=== PATIENT | male | born 1975 | race Caucasian/White ===

== ENCOUNTER 2017-01-29 11:51 | Observation (INO) | payer OTHER, MEDICAID ==
[2017-01-29] MEDS ORDERED: ASPIRIN 81 MG TABLET, CHEWABLE PO ONE (11:55)
[2017-01-29] MEDS ORDERED: ONDANSETRON 4 MG TAB.RAPDIS PO ONE (12:02)
--- NOTE | 2017-01-29 12:02 | ER Document Report ---
ED Medical Screen (RME) - General Stated Complaint: CHEST PAIN Mode of Arrival: Wheelchair Information source: Patient Notes: Patient presents to the emergency department with complaints of severe back and chest pain. Genie' reported that patient had some facial drooping yesterday. Pt reports PIPER yesterday. No PIPER today. No obvious drooping today clear voice. Pt c/o back and cp.Reports hx of CAD I have greeted and performed a rapid initial assessment of this patient. A comprehensive ED assessment and evaluation of the patient, analysis of test results and completion of the medical decision making process will be conducted by additional ED providers. TRAVEL OUTSIDE OF THE [place] IN LAST 30 DAYS: No - Related Data Allergies/Adverse Reactions: No Known Allergies Allergy (Verified 01/29/17 11:59) Past Medical History - Past Medical History Cardiac Medical History: Reports: Hx Hypertension Endocrine Medical History: Reports: Hx Hypothyroidism Musculoskeltal Medical History: Reports Hx Arthritis Psychiatric Medical History: Reports: Hx Depression, Hx Post Traumatic Stress Disorder - secondary to deployments. Past Surgical History: Reports: Hx Appendectomy, Hx Cardiac Catheterization, Hx Orthopedic Surgery - brachial artery repair, Hx Thyroid Surgery - removal, Other - Hx Brain Surgery - Immunizations Hx Diphtheria, Pertussis, Tetanus Vaccination: No
[2017-01-29 12:50] LABS: ABSOLUTE BASOPHILS # (AUTO) 0.1 10^3/uL (0.0-0.2); ABSOLUTE EOSINOPHILS # (AUTO) 0.3 10^3/uL (0.0-0.6); ABSOLUTE LYMPHOCYTES (AUTO) 1.1 10^3/uL (0.5-4.7); ABSOLUTE MONOCYTES (AUTO) 1.5 10^3/uL (0.1-1.4); ABSOLUTE NEUT (AUTO) 16.9 10^3/uL (1.7-8.2); BASOPHILS % (AUTO) 0.4 % (0-2); EOSINOPHILS % (AUTO) 1.5 % (0-6); HEMATOCRIT 47.4 % (37.9-51.0); HEMOGLOBIN 16.5 g/dL (13.5-17.0); HGB HCT DIFFERENCE 2.1; LYMPHOCYTES % (AUTO) 5.7 % (13-45); MEAN CORPUSCULAR HEMOGLOBIN 29.7 pg (27.0-33.4); MEAN CORPUSCULAR HGB CONC 34.9 g/dL (32.0-36.0); MEAN CORPUSCULAR VOLUME 85 fl (80-97); MONOCYTES % (AUTO) 7.3 % (3-13); RED BLOOD COUNT 5.56 10^6/uL (4.35-5.55); RED CELL DISTRIBUTION WIDTH 13.6 % (11.5-14.0); SEGMENTED NEUTROPHILS % (AUTO) 85.1 % (42-78); WHITE BLOOD COUNT 19.9 10^3/uL (4.0-10.5)
[2017-01-29 13:09] LABS: ALANINE AMINOTRANSFERASE 50 U/L (21-72); ALBUMIN 5.2 g/dL (3.5-5.0); ALKALINE PHOSPHATASE 51 U/L (38-126); ANION GAP 12 (5-19); ASPARTATE AMINO TRANSFERASE 36 U/L (17-59); BLOOD UREA NITROGEN 13 mg/dL (7-20); CALCIUM 10.7 mg/dL (8.4-10.2); CARBON DIOXIDE 27 mmol/L (22-30); CHLORIDE 96 mmol/L (98-107); CREATINE KINASE 420 U/L (55-170); GLUCOSE 106 mg/dL (75-110); POTASSIUM 4.5 mmol/L (3.6-5.0); TOTAL PROTEIN 8.1 g/dL (6.3-8.2)
[2017-01-29 13:20] LABS: CREATINE KINASE MB 3.18 ng/mL (<4.55)
[2017-01-29 13:21] LABS: TROPONIN I < 0.012 ng/mL
[2017-01-29] MEDS ORDERED: ONDANSETRON HCL INJ/PF 4 MG/2 ML SDV IV ONE ×2 (15:18→19:58)
[2017-01-29] MEDS ORDERED: MORPHINE SULFATE 10 MG/ML INJ IV ONE ×2 (15:18→19:58)
[2017-01-29] MEDS ORDERED: NORMAL SALINE 1000 ML 1,000 ML IV ONE (15:18)
--- NOTE | 2017-01-29 15:18 | ER Document Report ---
ED General Pain - General Mode of Arrival: Wheelchair Information source: Patient, Friend TRAVEL OUTSIDE OF THE [place] IN LAST 30 DAYS: No - HPI Patient complains to provider of: Back Pain Onset: This morning Context: New onset Associated symptoms: Other - see above <LUCITA DELGADO - Last Filed: 01/29/17 15:27> <STEFANJAEL Matamoros - Last Filed: 01/30/17 00:23> - General Chief Complaint: Chest Pain Stated Complaint: CHEST PAIN Notes: 41 year old male with history of chronic upper back pain (taking oxycontin 20 mg TID) presents to the ED complaining of diffuse back pain that radiates to the chest and bilateral upper and lower extremities. Patient's fiance reports that that the patient "passed out" last night after playing games with his family. Patient remembers walking upstairs to his bedroom and then nothing after. Patient was told that he was found on the floor, with his arms tucked by his side, and some facial drooping which quickly resolved. The fiance reports that the patient was confused last night and complaining of blurry vision. Today , the patient states that his back pain is different form his usual pain because it is "10 times worse" and that his lower back hurts now. Patient has taken 40 mg of Oxycontin today for this pain, but the patient explains that this is the worst pain that he has ever experienced. (LUCITA DELGADO) - Related Data Allergies/Adverse Reactions: No Known Allergies Allergy (Verified 01/29/17 11:59) Past Medical History - General Information source: Patient - Social History Smoking Status: Current Every Day Smoker Cigarette use (# per day): Yes - 0.75 ppd Frequency of alcohol use: Occasional Drug Abuse: Marijuana Family History: Reviewed & Not Pertinent Patient has suicidal ideation: No Patient has homicidal ideation: No - Past Medical History Cardiac Medical History: Reports: Hx Hypertension Endocrine Medical History: Reports: Hx Hypothyroidism Renal/ Medical History: Denies: Hx Peritoneal Dialysis Musculoskeltal Medical History: Reports Hx Arthritis, Reports Other - Chronic upper back pain Psychiatric Medical History: Reports: Hx Depression, Hx Post Traumatic Stress Disorder - secondary to deployments. Past Surgical History: Reports: Hx Appendectomy, Hx Cardiac Catheterization, Hx Orthopedic Surgery - brachial artery repair, Hx Thyroid Surgery - removal, Other - Hx Brain Surgery - Immunizations Hx Diphtheria, Pertussis, Tetanus Vaccination: No <LUCITA DELGADO - Last Filed: 01/29/17 15:27> Review of Systems - Review of Systems Constitutional: No symptoms reported EENT: No symptoms reported Cardiovascular: No symptoms reported Respiratory: No symptoms reported Gastrointestinal: See HPI, Nausea Genitourinary: No symptoms reported Male Genitourinary: No symptoms reported Musculoskeletal: See HPI, Back pain - diffuse, Other - Back pain that radiates to bilateral upper and lower extremity pain Skin: No symptoms reported Hematologic/Lymphatic: No symptoms reported Neurological/Psychological: No symptoms reported -: Yes All other systems reviewed and negative <LUCITA DELGADO - Last Filed: 01/29/17 15:27> Physical Exam - General General appearance: Alert, Anxious, Other - Unable to sit still In distress: None - HEENT Head: Normocephalic, Atraumatic Eyes: Normal Extraocular movements intact: Yes Pupils: PERRL - Respiratory Respiratory status: No respiratory distress Breath sounds: Normal - Cardiovascular Rhythm: Regular Heart sounds: Normal auscultation - Abdominal Inspection: Normal - Back Back: Tender - Paravertebral tenderness from upper thoracic to lower lumbar region - Extremities General upper extremity: Normal inspection, Normal ROM, Normal strength General lower extremity: Normal ROM, Normal strength. No: Normal inspection - see thigh exam below Thigh: Tender - Bilateral lateral thigh muscles are tender to palpate. No: Normal - Neurological Neuro grossly intact: Yes Motor strength normal: LLE, RLE Additional motor exam normals: Other - Bilateral straight leg raise are normal. No: Weakness - No extremity motor weakness or coordination issues. - Psychological Associated symptoms: Anxious - Skin Skin Temperature: Warm Skin Moisture: Moist Skin Color: Normal <LUCITA DELGADO - Last Filed: 01/29/17 15:27> <JAEL AVILES - Last Filed: 01/30/17 00:23> - Vital signs Vitals: Temp Pulse Resp BP Pulse Ox 98.6 F 85 20 138/80 H 98 01/29/17 12:05 01/29/17 12:05 01/29/17 12:05 01/29/17 12:05 01/29/17 12:05 Course - Laboratory Result Diagrams: 01/29/17 12:25 01/29/17 12:25 <LUCITA DELGADO - Last Filed: 01/29/17 15:27> - Laboratory Result Diagrams: 01/29/17 23:20 01/29/17 12:25 - Diagnostic Test Radiology reviewed: Image reviewed, Reports reviewed - CT scan of the head is unremarkable. CT scan of the chest shows a dilated ascending aorta at slightly over 4 cm, no aneurysm or dissection. No pneumonia, no abnormality in the thoracic spine. - EKG Interpretation by Me EKG shows normal: Sinus rhythm, [place], Intervals, QRS Complexes, ST-T Waves Rate: Normal - 81 Rhythm: NSR When compared to previous EKG there are: No significant change - Consults Dr. Zepeda Time consulted: 23:30 Consulted provider: other - Requests the CBC be repeated to ensure the elevated WBC was not a lab error and then will decide if he will come see the patient. Repeat blood work shows the elevated WBC was correct on the initial lab draw. <JAEL AVILES - Last Filed: 01/30/17 00:23> - Re-evaluation Re-evalutation: 01/29/17 18:23 The patient is much more comfortable at this time that he was earlier. I'm better able to do a thorough abdominal exam. There is some tenderness in the right lower quadrant on deep palpation, but there is really no guarding. There is no tenderness in the left lower quadrant. There is also some epigastric tenderness which she reports is a chronic problem. He had received Tylenol, 10 mg of morphine and 8 mg of Zofran. Given the narcotic dosing he takes on a daily basis, the amount of narcotic he received is not enough to have made him feel better. I suspect the Tylenol working on fever possibly has helped. At this point we still have an unexplained 20,000 WBC. 01/29/17 22:30 CT scans showed an enlarged ascending aorta, but no acute process to explain his symptoms or his white blood cell count. The patient was further discussed with the radiologist recommended a thoracic spine, no MRI. The patient went over the MRI, "freaked out" and was sent back by the substance abuse technician. This was after he had stated he was not claustrophobic. He was eventually sent back and given IV Ativan, I was called by the radiologist to say that the patient still would not remain still, the contrasted version of the scan could not be done, the scan was limited but showed no fracture, no marrow edema, no compression of the spinal cord. 01/29/17 23:28 (JAEL AVILES) - Vital Signs Vital signs: Temp Pulse Resp BP Pulse Ox 98.6 F 88 22 H 102/66 95 01/29/17 13:00 01/29/17 22:37 01/29/17 22:37 01/29/17 22:37 01/29/17 22:37 - Laboratory Laboratory results interpreted by me: 01/29/17 01/29/17 01/29/17 12:25 12:25 12:25 WBC 19.9 H RBC 5.56 H Seg Neutrophils % 85.1 H Lymphocytes % 5.7 L Absolute Neutrophils 16.9 H Absolute Monocytes 1.5 H Sodium 135.0 L Chloride 96 L Calcium 10.7 H Creatine Kinase 420 H C-Reactive Protein 37.1 H Albumin 5.2 H 01/29/17 23:20 WBC 17.4 H RBC Seg Neutrophils % 82.2 H Lymphocytes % 8.5 L Absolute Neutrophils 14.3 H Absolute Monocytes 1.5 H Sodium Chloride Calcium Creatine Kinase C-Reactive Protein Albumin Discharge <LUCITA DELGADO - Last Filed: 01/29/17 15:27> - Discharge Admitting Provider: Hospitalist Unit Admitted: Telemetry <JAEL AVILES - Last Filed: 01/30/17 00:23> - Discharge Clinical Impression: Acute midline thoracic back pain, Syncope and collapse Leukocytosis Qualifiers: Leukocytosis type: unspecified Qualified Code(s): D72.829 - Elevated white blood cell count, unspecified Condition: Stable Disposition: ADMITTED OBSERVATION Referrals: KARTHIK SERRATO FNP [Primary Care Provider] - Follow up as needed Scribe Documentation - Scribe Written by Scribe:: Trent Estes, 01/29/2017 1553 acting as scribe for :: Stefan <LUCITA DELGADO - Last Filed: 01/29/17 15:27>
[2017-01-29] MEDS ORDERED: ACETAMINOPHEN 325 MG TABLET PO ONE (15:22)
[2017-01-29 15:24] LABS: ADD ON TESTING BLD IN LAB ACKNOWLEDGE
[2017-01-29 15:53] LABS: C-REACTIVE PROTEIN 37.1 mg/L (<10.0); MAGNESIUM 1.9 mg/dL (1.6-2.3)
[2017-01-29] MEDS ORDERED: KETOROLAC TROMETHAMINE INJ/PF 30 MG/1 ML SDV IV ONE (18:17)
[2017-01-29 19:39] LABS: ADD ON TESTING BLD IN LAB ACKNOWLEDGE
[2017-01-29] MEDS ORDERED: LORAZEPAM INJ 2 MG/1 ML VIAL IV ONE (21:02)
[2017-01-30 00:02] LABS: ABSOLUTE EOSINOPHILS # (AUTO) 0.1 10^3/uL (0.0-0.6); ABSOLUTE LYMPHOCYTES (AUTO) 1.5 10^3/uL (0.5-4.7); ABSOLUTE MONOCYTES (AUTO) 1.5 10^3/uL (0.1-1.4); ABSOLUTE NEUT (AUTO) 14.3 10^3/uL (1.7-8.2); BASOPHILS % (AUTO) 0.2 % (0-2); EOSINOPHILS % (AUTO) 0.7 % (0-6); HEMATOCRIT 45.4 % (37.9-51.0); HEMOGLOBIN 15.8 g/dL (13.5-17.0); LYMPHOCYTES % (AUTO) 8.5 % (13-45); MEAN CORPUSCULAR HEMOGLOBIN 29.7 pg (27.0-33.4); MEAN CORPUSCULAR HGB CONC 34.8 g/dL (32.0-36.0); MEAN CORPUSCULAR VOLUME 85 fl (80-97); MONOCYTES % (AUTO) 8.4 % (3-13); RED BLOOD COUNT 5.32 10^6/uL (4.35-5.55); RED CELL DISTRIBUTION WIDTH 13.1 % (11.5-14.0); SEGMENTED NEUTROPHILS % (AUTO) 82.2 % (42-78); WHITE BLOOD COUNT 17.4 10^3/uL (4.0-10.5)
[2017-01-30] MEDS ORDERED: MORPHINE SULFATE 10 MG/ML INJ IV ONE ×2 (00:22→05:31)
[2017-01-30 01:20] LABS: APPEARANCE,URINE CLEAR; BILIRUBIN,URINE NEGATIVE (NEGATIVE); GLUCOSE, URINE NEGATIVE (NEGATIVE); KETONES,URINE NEGATIVE (NEGATIVE); LEUKOCYTE ESTERASE,URINE TRACE (NEGATIVE); NITRITE,URINE NEGATIVE (NEGATIVE); PROTEIN,URINE NEGATIVE (NEGATIVE); UROBILINOGEN,URINE NEGATIVE mg/dL (<2.0)
[2017-01-30 01:58] LABS: URINE BARBITURATES SCREEN NEGATIVE; URINE METHADONE SCREEN NEGATIVE; URINE OPIATES LOW UNCONFIRMED POSITIVE; URINE PHENCYCLIDINE SCREEN NEGATIVE
[2017-01-30] MEDS ORDERED: PROMETHAZINE HCL INJ 25 MG/1 ML VIAL IV PRN (05:31)
[2017-01-30] MEDS ORDERED: PROMETHAZINE HCL INJ 25 MG/1 ML VIAL ONE (05:44)
[2017-01-30] MEDS ORDERED: MORPHINE SULFATE 10 MG/ML INJ ONE (05:50)
[2017-01-30] MEDS ORDERED: ACETAMINOPHEN 325 MG TABLET PO PRN (06:29)
[2017-01-30] MEDS ORDERED: DEXTROSE 5%-NORMAL SALINE 1,000 ML IV PRN (06:29)
[2017-01-30 07:22] LABS: HEMATOCRIT 44.9 % (37.9-51.0); HEMOGLOBIN 15.5 g/dL (13.5-17.0); HGB HCT DIFFERENCE 1.6; MEAN CORPUSCULAR HEMOGLOBIN 29.1 pg (27.0-33.4); MEAN CORPUSCULAR HGB CONC 34.5 g/dL (32.0-36.0); MEAN CORPUSCULAR VOLUME 85 fl (80-97); RED BLOOD COUNT 5.32 10^6/uL (4.35-5.55); WHITE BLOOD COUNT 22.6 10^3/uL (4.0-10.5)
[2017-01-30 07:42] LABS: ANION GAP 12 (5-19); BLOOD UREA NITROGEN 11 mg/dL (7-20); CALCIUM 9.8 mg/dL (8.4-10.2); CARBON DIOXIDE 24 mmol/L (22-30); CHLORIDE 97 mmol/L (98-107); CREATINE KINASE 555 U/L (55-170); CREATININE RESULT 0.95 mg/dL (0.52-1.25); GLUCOSE 116 mg/dL (75-110); MAGNESIUM 1.8 mg/dL (1.6-2.3); SODIUM 132.5 mmol/L (137-145)
[2017-01-30 07:44] LABS: BAND NEUTROPHILS % (MANUAL) 1 % (3-5); BASOPHILS % (MANUAL) 0 % (0-2); EOSINOPHILS % (MANUAL) 0 % (0-6); LYMPHOCYTES % (MANUAL) 4 % (13-45); RBC MORPHOLOGY COMMENT NORMO-CYTIC/CHROMIC; TOTAL CELLS COUNTED 100
[2017-01-30] MEDS ORDERED: MOMETASONE FUROATE 220 MCG IH PRN (10:21)
[2017-01-30] MEDS ORDERED: NORMAL SALINE 1000 ML 1,000 ML IV ONE (10:22)
[2017-01-30] MEDS: DOCUSATE SODIUM 100 MG CAPSULE PO SCH ×2 (10:30→17:16)
[2017-01-30] MEDS ORDERED: VANCOMYCIN HCL 0 MG in DEXTROSE 5%-WATER 250 ML IV NR (10:30)
[2017-01-30] MEDS: MORPHINE SULFATE 10 MG/ML INJ IV PRN ×2 (10:30→23:32)
--- NOTE | 2017-01-30 10:30 | PDOC H&P ---
History of Present Illness Admission Date/PCP: 01/30/17 01:07 KARTHIK SERRATO, TIMMY Pain Mgt. Patient complains of: syncope, back pain History of Present Illness: GURINDER VIZCAINO is a 41 year old male, with underlying posttraumatic stress disorder, and chronic upper back pain who presents to the emergency room for evaluation of above complaint. Evening of the , when playing board games with his family he walked upstairs and when apparently did not return a short while later, family found him on the floor with arm stuck by his side and brief facial drooping, which reportedly quickly resolved. , who is present with patient with his approval, noted some confusion that evening and blurred vision. However, starting early on the , patient began experiencing quite pronounced mid back pain, much more intense than usual, the "worst ever," with radiation of the pain to his chest and bilateral upper and lower extremities. Normally, again, his chronic back pain is in his upper back. Describes the pain as combination of sharp and "spasm-like." A bit difficult to pin the patient down, but states certain movements do seem to make the pain worse. Denies fever chills. No recent trauma to his back, no recent unusual physical exertion. Prior back injury in service. No recent change in his medications. Emergency room physician did perform on line prescription review for the patient, and stated that he saw "nothing unusual." Takes OxyContin 20 mg by mouth 3 times a day. Has required low doses of morphine in the emergency room. Patient denies any difficulty voiding. No fecal incontinence. Please review extensive documentation by the emergency room physician. All in all, he detected no neurologic deficit in his extensive repeated evaluations. Multiple imaging procedures were performed. However, despite 2 attempts, primarily due to patient's inability to remain still, thoracic spine MRI was greatly limited. Reports are reviewed. Patient has remained afebrile in the emergency room, until just prior to the end of the night shift manager, when temperature 100.8 was obtained. Patient has been discussed with emergency room physician who evaluated the patient. . Laboratory results are listed in [employer] and are reviewed. X-ray summary results are listed below, with full report(s) reviewed. . EKG reviewed. Social history/personal habits: . Has children. On disability. Three- quarter pack-a-day smoker. Occasional marijuana use. No alcohol use. Allergies/adverse reactions NKDA. Home medications Home medications initially autopopulated into [facility] may not accurately reflect patient's true medications, dosages, and/or frequencies. REVIEW OF SYSTEMS: Constitutional: No fever or chills. Eyes: Wears glasses. ENT: No swallowing problems or complaints. No hearing problems or complaints. Pulmonary: No current complaints. Cardiovascular: No current complaints, including chest pain. Gastrointestinal: Several episodes of nausea and vomiting in the emergency room. Patient states this was primarily due to the pain. Skin: No current complaints, including rashes. Hematologic: No unusual easy bruising or bleeding. Neurologic: No current complaints, including numbness or tingling. Musculoskeletal: See history and present illness. Psychiatric: Mild Anxiety depression; denies suicidal or homicidal ideation. Endocrine: No current complaints, including polyuria. Genitourinary: No current complaints, including dysuria. PHYSICAL EXAMINATION: 6 feet 1 inches tall. 103.1 kg. BMI 30 kg/m. Blood pressure 144/66. Pulse 96 and regular. 94% saturation on room air. Respirations are 26 and unlabored. Temperature 98.6. Somewhat overweight but also rather stocky otherwise well-developed young middle -age male who appears to be in obvious distress from pain. Complaining of mid back pain. However, patient also cannot seem to keep still, so to speak, moving from a supine to lateral decubitus to seated position and back a number of times. Outwardly moaning at times. is present at his side; patient approves. Female emergency room nurse Camilla is present. Skin is warm and dry. No grossly obvious evidence of rash in areas of skin examined. No subcutaneous nodules palpated. ENT: Perhaps Mildly hard of hearing to normal conversation. Tongue midline on protrusion pink and slightly tacky. Exam of oropharynx slightly limited due to patient gagging, but no overt evidence of exudate or ulceration; mild inflammation and soft tissue swelling oropharynx. Eyes: No scleral icterus. Pupils equal and reactive to light at 4 mm. [place] conjunctivae. Neck is supple and nontender to gentle active range of motion and palpation. Midline trachea. No palpable thyroid nodule mass enlargement or tenderness. Lymphatic: No palpable cervical or clavicular nodes. Neck and lymphatic exams limited by patient body habitus. Psychiatric: Difficult to evaluate due to the level of discomfort he seems to be experiencing. Lungs: Auscultation reveals clear and equal breath sounds bilaterally. No use of accessory respiratory muscles. Cardiovascular: Heart regular rate and rhythm, without gallop murmur or rub. No carotid or abdominal aortic bruits. No ankle or pedal edema. palpable dorsalis pedis pulses. Abdomen: soft, slightly obese, nontender with positive bowel sounds. Unable to adequately evaluate abdomen for masses or organomegaly due to body habitus. Quite acceptable rectal tone. Extremities: Hands and Feet are warm and dry. No calf tenderness to compression. No grossly obvious visual evidence of calf swelling. Gentle manipulation of all 4 lower extremities fails to reveal any obvious evidence of injury or instability to knees hips or ankles. With the patient lying in a lateral decubitus position, visual examination of the back fails to reveal any grossly obvious abnormality. Certainly no evidence of inflammation. Patient has mild tenderness over the upper 80% of the spine, with the most pronounced tenderness in the mid to lower thoracic spine. Even at that point, does not appear to be too prominent specific point tenderness. No induration crepitus fluctuance or expressible discharge. No skin opening. No specific muscle spasm, although patient at times states the pain feels as such. Neurologic: Light touch intact and symmetric at upper and lower extremities, including buttocks and scrotum. Motor function of major muscle groups upper and lower extremities 5 over 5 and symmetric. Patellar reflexes absent. Absent Babinski. No rigidity. No ankle clonus. Past Medical History Cardiac Medical History: Reports: Hypertension Denies: DVT, Myocardial Infarction, Hyperlipidema, Pulmonary Embolism Pulmonary Medical History: Denies: Asthma, Chronic Obstructive Pulmonary Disease (COPD) EENT Medical History: Denies: Eyes, Ears, Throat Endocrine Medical History: Reports: Hypothyroidism Denies: Diabetes Mellitus Type 1, Diabetes Mellitus Type 2, Hyperthyroidism Renal/ Medical History: Reports: None GI Medical History: Reports: Gastroesophageal Reflux Disease Denies: Cirrhosis, Hepatitis, Peptic Ulcer Disease Musculoskeltal Medical History: Reports: Arthritis, Other - Chronic upper back pain Skin Medical History: Reports: Eczema Psychiatric Medical History: Reports: Depression, General Anxiety Disorder, Post Traumatic Stress Disorder - secondary to deployments., Tobacco Dependency Denies: Alcohol Dependency, Substance Abuse Infectious Medical History: Denies: Hepatitis B, Hepatitis C Past Surgical History Past Surgical History: Reports: Appendectomy, Cardiac Catheterization, Orthopedic Surgery - brachial artery repair, Thyroidectomy - For thyroid cancer Social History Information Source: Patient, Relative - , Emergency Med Personnel, [facility] Records Lives with: Spouse/Significant other Smoking Status: Current Every Day Smoker Frequency of Alcohol Use: None Drugs: None - Advance Directive Resuscitation Status: Full Code Surrogate healthcare decision maker:: Family History Family History: Reviewed & Not Pertinent Parental Family History Reviewed: Yes Children Family History Reviewed: Yes Sibling(s) Family History Reviewed.: Yes Medication/Allergy Home Medications: RX: Gabapentin [Neurontin 300 mg Capsule] 300 mg PO Q8 01/30/17 RX: Oxycodone HCl [Oxycontin] 20 mg PO Q8 01/30/17 Mometasone Furoate [Asmanex] 220 mcg IH PRN PRN 02/01/17 RX: Amoxicillin Trihydrate [Amoxil 500 mg Capsule] 500 mg PO MEALS #21 capsule 02/01/17 RX: Aspirin [Aspirin 325 mg Tablet] 325 mg PO DAILY tablet 02/01/17 RX: Celecoxib [Celebrex 200 mg Capsule] 200 mg PO BID #60 capsule 02/01/17 RX: Clonazepam [Klonopin 1 mg Tablet] 1 mg PO BID tablet 02/01/17 RX: Docusate Sodium [Colace 100 mg Capsule] 100 mg PO BID #60 capsule 02/01/17 RX: Lidocaine [Lidoderm 5% (700 mg) Transdermal Patch] 2 patch TP DAILY@1200 # 60 adh..patch 02/01/17 RX: Lisinopril [Prinivil 10 mg Tablet] 20 mg PO DAILY@1200 tablet 02/01/17 Allergies/Adverse Reactions: No Known Allergies Allergy (Verified 01/29/17 11:59) Physical Exam Vital Signs: Temp Pulse Resp BP Pulse Ox 100.8 F H 88 22 H 144/66 H 93 01/30/17 06:22 01/29/17 22:37 01/30/17 05:00 01/30/17 06:22 01/30/17 06:00 Results Impressions: Thoracic Spine MRI 01/29/17 00:00 IMPRESSION: Extremely limited study. No gross spinal malalignment, overt fracture or marrow edema. No high-grade spinal stenosis suggested. Chest X-Ray 01/29/17 11:55 IMPRESSION: NO SIGNIFICANT RADIOGRAPHIC FINDING IN THE CHEST. Chest CT 01/29/17 16:31 IMPRESSION: 1. No evidence of pneumonia. Lungs are clear. 2. Dilated ascending aorta, just over 4 cm but no evidence of jason aneurysm or dissection. 3. Bones of the thoracic spine look normal by CT. Head CT 01/29/17 16:31 IMPRESSION: No acute intracranial abnormality. Abdomen/Pelvis CT 01/29/17 18:17 IMPRESSION: 1. No acute or suspicious abdominopelvic abnormality suggested beyond what may be a mild ileus. No suggestion of inflammatory process or abscess. Assessment & Plan - Diagnosis (1) Abnormal urinalysis Is this a current diagnosis for this admission?: YesPlan: Urine culture. (2) Acute midline thoracic back pain Is this a current diagnosis for this admission?: YesPlan: Uncertain etiology at this time, but with leukocytosis, acute onset of pain, and low-grade fever, concern is for possible discitis. With 2 quite limited MR studies so far, will consult orthopedics. As long as patient remains hemodynamically stable, and without obvious evidence of sepsis, will forego antibiotics at this time until hopefully specific source can be detected. Pain control. I have strongly encouraged patient not to get out of bed without notifying staff , to avoid a fall with injury. Knee high SCDs for DVT prophylaxis, along with subcutaneous Lovenox . Impression and plans were discussed with patient, and , both of whom concur. Time spent in evaluation and management of patient: 61 minutes. (3) PTSD (post-traumatic stress disorder) Is this a current diagnosis for this admission?: YesPlan: Resume home medications as appropriate once these have been determined and reviewed. (4) Syncope and collapse Is this a current diagnosis for this admission?: Yes (5) Leukocytosis Qualifiers: Leukocytosis type: unspecified Qualified Code(s): D72.829 - Elevated white blood cell count, unspecified Is this a current diagnosis for this admission?: Yes
[2017-01-30] MEDS ORDERED: ENOXAPARIN SODIUM INJ 40 MG/0.4 ML DISP.SYRIN SUBCUT ONE (11:00)
[2017-01-30] MEDS ORDERED: ERTAPENEM SODIUM 1 GM in NORMAL SALINE 50 ML IV SCH (12:00)
[2017-01-30] MEDS: LISINOPRIL 10 MG TABLET PO SCH (12:20)
[2017-01-30] MEDS: POLYETHYLENE GLYCOL 3350 POWDER 17 GM/1 PACKET PO SCH (12:20)
[2017-01-30] MEDS: LIDOCAINE 5% (700 MG) TRANSDERMAL ADH..PATCH TP SCH (12:20)
[2017-01-30] MEDS ORDERED: SODIUM CHLORIDE 1 GM TABLET PO PRN (13:00)
[2017-01-30] MEDS: GABAPENTIN 300 MG CAPSULE PO SCH ×2 (13:33→21:41)
[2017-01-30] MEDS: PHENOL/SODIUM PHENOLATE 100 SPRAY/177 ML BOTTLE PO PRN ×2 (13:33→15:21)
[2017-01-30] MEDS: OXYCODONE HCL SR 10 MG TABLET PO SCH ×2 (15:26→21:41)
[2017-01-30] MEDS: CLONAZEPAM 1 MG TABLET PO SCH (17:16)
[2017-01-30] MEDS: KETOROLAC TROMETHAMINE INJ/PF 30 MG/1 ML SDV IV PRN (17:17)
[2017-01-30] MEDS: SENNOSIDES/DOCUSATE 8.6-50 MG 1 EACH TABLET PO SCH (17:17)
[2017-01-30] MEDS ORDERED: AMOXICILLIN TRIHYDRATE 500 MG CAPSULE ONE (17:23)
[2017-01-30] MEDS: AMOXICILLIN TRIHYDRATE 500 MG CAPSULE PO SCH (17:24)
[2017-01-30] MEDS: NORMAL SALINE 1000 ML 1,000 ML IV PRN ×2 (17:28→21:42)
--- NOTE | 2017-01-30 20:15 | EKG REPORT ---
SEVERITY:- NORMAL ECG - SINUS RHYTHM : Confirmed by: Katherine De Jesus 30-Jan-2017 20:14:47
[2017-01-30] MEDS: ONDANSETRON HCL INJ/PF 4 MG/2 ML SDV IV PRN (23:33)
[2017-01-31] MEDS: OXYCODONE HCL IR 5 MG TABLET PO PRN ×3 (02:06→19:55)
[2017-01-31] MEDS: KETOROLAC TROMETHAMINE INJ/PF 30 MG/1 ML SDV IV PRN (03:13)
[2017-01-31] MEDS: GABAPENTIN 300 MG CAPSULE PO SCH ×3 (05:45→23:06)
[2017-01-31] MEDS: OXYCODONE HCL SR 10 MG TABLET PO SCH ×3 (05:45→23:03)
[2017-01-31] MEDS ORDERED: LEVOTHYROXINE SODIUM 0.05 MG TABLET PO SCH (06:00)
[2017-01-31] MEDS: ENOXAPARIN SODIUM INJ 40 MG/0.4 ML DISP.SYRIN SUBCUT SCH (08:13)
[2017-01-31] MEDS: AMOXICILLIN TRIHYDRATE 500 MG CAPSULE PO SCH ×3 (08:13→19:57)
[2017-01-31] MEDS ORDERED: GABAPENTIN 300 MG CAPSULE PO SCH (10:00)
[2017-01-31] MEDS ORDERED: LEVOTHYROXINE SODIUM 0.112 MG TABLET PO SCH ×2 (10:00)
[2017-01-31] MEDS ORDERED: (PENDING PHARMACY ID) (Lisinopril [Lisinopril] 20 MG) PO SCH (10:00)
[2017-01-31 10:31] LABS: HEMATOCRIT 43.1 % (37.9-51.0); HEMOGLOBIN 14.7 g/dL (13.5-17.0); MEAN CORPUSCULAR HEMOGLOBIN 29.1 pg (27.0-33.4); MEAN CORPUSCULAR HGB CONC 34.1 g/dL (32.0-36.0); MEAN CORPUSCULAR VOLUME 85 fl (80-97); RED BLOOD COUNT 5.05 10^6/uL (4.35-5.55); RED CELL DISTRIBUTION WIDTH 13.4 % (11.5-14.0); WHITE BLOOD COUNT 22.6 10^3/uL (4.0-10.5)
[2017-01-31 10:52] LABS: ANION GAP 12 (5-19); BLOOD UREA NITROGEN 10 mg/dL (7-20); CARBON DIOXIDE 24 mmol/L (22-30); CHLORIDE 100 mmol/L (98-107); CREATININE RESULT 0.75 mg/dL (0.52-1.25); GLUCOSE 137 mg/dL (75-110); POTASSIUM 3.4 mmol/L (3.6-5.0); SODIUM 135.7 mmol/L (137-145)
[2017-01-31 11:01] LABS: BASOPHILS % (MANUAL) 0 % (0-2); EOSINOPHILS % (MANUAL) 0 % (0-6); LYMPHOCYTES % (MANUAL) 5 % (13-45); TOTAL CELLS COUNTED 100
[2017-01-31 11:02] LABS: RBC MORPHOLOGY COMMENT NORMO-CYTIC/CHROMIC; TOXIC GRANULATION SLIGHT
[2017-01-31] MEDS: DULOXETINE HCL 30 MG CAPSULE.DR PO SCH (11:50)
[2017-01-31] MEDS: SENNOSIDES/DOCUSATE 8.6-50 MG 1 EACH TABLET PO SCH ×2 (11:52→17:29)
[2017-01-31] MEDS: CLONAZEPAM 1 MG TABLET PO SCH ×2 (11:52→18:18)
[2017-01-31] MEDS: ASPIRIN 325 MG TABLET PO SCH (11:53)
[2017-01-31] MEDS: LEVOTHYROXINE SODIUM 0.1 MG TABLET PO SCH (12:09)
[2017-01-31] MEDS: DOCUSATE SODIUM 100 MG CAPSULE PO SCH ×2 (12:16→17:29)
[2017-01-31] MEDS: LISINOPRIL 10 MG TABLET PO SCH (13:20)
[2017-01-31] MEDS: POLYETHYLENE GLYCOL 3350 POWDER 17 GM/1 PACKET PO SCH (13:24)
[2017-01-31] MEDS ORDERED: HALOPERIDOL LACTATE INJ 5 MG/1 ML VIAL IV ONE (14:00)
[2017-01-31] MEDS ORDERED: MAGNESIUM CITRATE 296 ML BOTTLE PO ONE (14:00)
--- NOTE | 2017-01-31 16:59 | PDOC PROGRESS REPORT ---
Subjective Progress Note for:: 01/31/17 Subjective:: Patient has yet to have a bowel movement. Patient reports he has a sore throat. He reports in general he feels poor all over. He does complain of mid back pain. Patient had exposure recently to a child who was sick with strep throat. Patient denies chest pain, shortness of breath, abdominal pain, nausea, vomiting, fevers, chills, diarrhea, headache, new onset weakness. Physical Exam Vital Signs: Temp Pulse Resp BP Pulse Ox 97.7 F 72 16 120/89 H 97 01/31/17 05:51 01/31/17 07:31 01/31/17 07:31 01/31/17 07:31 01/31/17 07:31 Intake & Output 01/30/17 01/31/17 02/01/17 06:59 06:59 06:59 Intake Total 3575 Output Total 300 Balance 3275 Weight 103.1 kg Exam: General: Awake alert and oriented x3, no acute respiratory distress HEENT: AT/NC, PERRL, EOMI, oropharynx is moist, pink, no scleral icterus, no conjunctival injection Neck: No JVD, trachea midline Chest: Clear to auscultation bilaterally, no wheezes rhonchi or rales CV: Regular rate and rhythm, normal S1 and S2, no murmur, rub, or gallop Abdomen: Soft, nontender to palpation, nondistended, hypoactive bowel sounds; no rebound, rigidity, or guarding Extremities: No cyanosis, clubbing or edema Neuro: Cranial nerves II through XII are grossly intact without focal deficits; awake alert and oriented x3 Psych: Unusual mood and affect Skin: Patient has multiple excoriated skin lesions on his head and bilateral arms and legs. Results Laboratory Results: 01/30/17 07:05 01/30/17 07:05 01/30/17 07:05 Free T4 0.78 Free T3 pg/mL 3.00 01/30/17 07:05 Creatine Kinase 555 H Impressions: Thoracic Spine MRI 01/29/17 00:00 IMPRESSION: Extremely limited study. No gross spinal malalignment, overt fracture or marrow edema. No high-grade spinal stenosis suggested. Chest X-Ray 01/29/17 11:55 IMPRESSION: NO SIGNIFICANT RADIOGRAPHIC FINDING IN THE CHEST. Chest CT 01/29/17 16:31 IMPRESSION: 1. No evidence of pneumonia. Lungs are clear. 2. Dilated ascending aorta, just over 4 cm but no evidence of jason aneurysm or dissection. 3. Bones of the thoracic spine look normal by CT. Head CT 01/29/17 16:31 IMPRESSION: No acute intracranial abnormality. Abdomen/Pelvis CT 01/29/17 18:17 IMPRESSION: 1. No acute or suspicious abdominopelvic abnormality suggested beyond what may be a mild ileus. No suggestion of inflammatory process or abscess. Assessment & Plan - Diagnosis (1) SIRS (systemic inflammatory response syndrome) Is this a current diagnosis for this admission?: YesPlan: Patient presented with symptomatology consistent with SIRS including leukocytosis, fever, elevated respiratory rate. Patient is found to have strep throat. This is likely the cause, but in light of patient's reported acute mid back pain, will rule out discitis with MRI. (2) Strep throat Is this a current diagnosis for this admission?: YesPlan: Amoxicillin 500 mg by mouth 3 times a day 7 days. (3) Acute midline thoracic back pain Is this a current diagnosis for this admission?: YesPlan: Have place Lidoderm patches. Continue patient's home regimen. Patient received extra morphine in the emergency department and when I visited him at that time, he was waxing and waning consciousness. Will avoid additional narcotics. Consider placing patient on meloxicam. (4) Syncope and collapse Is this a current diagnosis for this admission?: YesPlan: Likely secondary to dehydration. (5) History of thyroid cancer Is this a current diagnosis for this admission?: YesPlan: Patient currently under repleted for this history. Have increased his Synthroid to 0.25 mg by mouth daily (6) Upper back pain, chronic Is this a current diagnosis for this admission?: YesPlan: Continue home narcotic regimen (7) PTSD (post-traumatic stress disorder) Is this a current diagnosis for this admission?: Yes - Time Time Spent with patient: 25-34 minutes Medications reviewed and adjusted accordingly: Yes Anticipated discharge: Home Within: within 24 hours
--- NOTE | 2017-01-31 17:11 | PDOC PROGRESS REPORT ---
Subjective Progress Note for:: 01/30/17 Subjective:: This is a late entry for 01/30/2017. Patient seen earlier that day on rounds. Patient is quite lethargic when I see him. He does drift off and conversation. Patient complains of back pain and is verbally moaning while falling asleep. Unable to obtain review of systems secondary to lethargy. He does report that he has a sore throat. Physical Exam Vital Signs: Selected Entries 01/30/17 01/30/17 01/30/17 06:22 07:53 08:00 Temperature 100.8 F H Heart Rate ( 80 Monitors) Respiratory 12 Rate Blood Pressure 104/73 O2 Sat by Pulse 91 L Oximetry Exam: General: Awake alert and oriented x3, no acute respiratory distress HEENT: AT/NC, PERRL, EOMI, oropharynx is moist, pink, no scleral icterus, no conjunctival injection Neck: No JVD, trachea midline Chest: Clear to auscultation bilaterally, no wheezes rhonchi or rales CV: Regular rate and rhythm, normal S1 and S2, no murmur, rub, or gallop Abdomen: Soft, nontender to palpation, nondistended, hypoactive bowel sounds; no rebound, rigidity, or guarding Extremities: No cyanosis, clubbing or edema Neuro: Cranial nerves II through XII are grossly intact without focal deficits; awake alert and oriented x3 Psych: Unusual mood and affect Skin: Patient has multiple excoriated skin lesions on his head and bilateral arms and legs. Results Laboratory Results: 01/31/17 09:45 01/31/17 09:45 01/31/17 01/31/17 09:45 09:45 WBC 22.6 H RBC 5.05 Hgb 14.7 Hct 43.1 MCV 85 MCH 29.1 MCHC 34.1 RDW 13.4 Plt Count 209 Seg Neutrophils % Not Reportable Lymphocytes % Not Reportable Monocytes % Not Reportable Eosinophils % Not Reportable Basophils % Not Reportable Absolute Neutrophils Not Reportable Absolute Lymphocytes Not Reportable Absolute Monocytes Not Reportable Absolute Eosinophils Not Reportable Absolute Basophils Not Reportable Sodium 135.7 L Potassium 3.4 L Chloride 100 Carbon Dioxide 24 Anion Gap 12 BUN 10 Creatinine 0.75 Est GFR ( Amer) > 60 Est GFR (Non-Af Amer) > 60 Glucose 137 H Calcium 9.0 01/30/17 07:05 Creatine Kinase 555 H Impressions: Thoracic Spine MRI 01/29/17 00:00 IMPRESSION: Extremely limited study. No gross spinal malalignment, overt fracture or marrow edema. No high-grade spinal stenosis suggested. Chest X-Ray 01/29/17 11:55 IMPRESSION: NO SIGNIFICANT RADIOGRAPHIC FINDING IN THE CHEST. Chest CT 01/29/17 16:31 IMPRESSION: 1. No evidence of pneumonia. Lungs are clear. 2. Dilated ascending aorta, just over 4 cm but no evidence of jason aneurysm or dissection. 3. Bones of the thoracic spine look normal by CT. Head CT 01/29/17 16:31 IMPRESSION: No acute intracranial abnormality. Abdomen/Pelvis CT 01/29/17 18:17 IMPRESSION: 1. No acute or suspicious abdominopelvic abnormality suggested beyond what may be a mild ileus. No suggestion of inflammatory process or abscess. Assessment & Plan - Diagnosis (1) SIRS (systemic inflammatory response syndrome) Is this a current diagnosis for this admission?: YesPlan: Patient presented with symptomatology consistent with SIRS including leukocytosis, fever, elevated respiratory rate. Will check an influenza screen , group A strep rapid strep, and repeat patient blood cultures. In light of concern for discitis, will initiate patient on vancomycin and ertapenem. (2) Strep throat Is this a current diagnosis for this admission?: YesPlan: We'll transition patient to amoxicillin if this is the case. Patient has clinical signs of strep throat. (3) Acute midline thoracic back pain Is this a current diagnosis for this admission?: YesPlan: Place Lidoderm patches for ongoing pain. Continue patient's home regimen. Patient's current acute encephalopathy likely secondary to excessive narcotics and benzodiazepine usage. Will avoid additional narcotics. Consider placing patient on meloxicam or Celebrex. (4) Syncope and collapse Is this a current diagnosis for this admission?: YesPlan: Likely secondary to dehydration. (5) History of thyroid cancer Is this a current diagnosis for this admission?: YesPlan: Patient currently under repleted for this history. Have increased his Synthroid to 0.25 mg by mouth daily (6) Upper back pain, chronic Is this a current diagnosis for this admission?: YesPlan: Continue home narcotic regimen (7) PTSD (post-traumatic stress disorder) Is this a current diagnosis for this admission?: Yes - Time Time Spent with patient: 25-34 minutes Medications reviewed and adjusted accordingly: Yes
[2017-01-31] MEDS: LIDOCAINE 5% (700 MG) TRANSDERMAL ADH..PATCH TP SCH (17:29)
[2017-01-31] MEDS ORDERED: CELECOXIB 200 MG CAPSULE PO SCH (18:00)
[2017-02-01] MEDS: MORPHINE SULFATE 10 MG/ML INJ IV PRN ×2 (02:50→08:50)
[2017-02-01] MEDS: ONDANSETRON HCL INJ/PF 4 MG/2 ML SDV IV PRN (02:50)
[2017-02-01] MEDS: GABAPENTIN 300 MG CAPSULE PO SCH (06:10)
[2017-02-01] MEDS: OXYCODONE HCL SR 10 MG TABLET PO SCH (06:10)
[2017-02-01] MEDS: AMOXICILLIN TRIHYDRATE 500 MG CAPSULE PO SCH ×2 (08:16→11:57)
[2017-02-01] MEDS: ENOXAPARIN SODIUM INJ 40 MG/0.4 ML DISP.SYRIN SUBCUT SCH (08:16)
[2017-02-01 09:01] LABS: ABSOLUTE EOSINOPHILS # (AUTO) 0.3 10^3/uL (0.0-0.6); ABSOLUTE LYMPHOCYTES (AUTO) 1.4 10^3/uL (0.5-4.7); ABSOLUTE MONOCYTES (AUTO) 1.4 10^3/uL (0.1-1.4); ABSOLUTE NEUT (AUTO) 10.9 10^3/uL (1.7-8.2); BASOPHILS % (AUTO) 0.2 % (0-2); EOSINOPHILS % (AUTO) 1.8 % (0-6); HEMOGLOBIN 15.5 g/dL (13.5-17.0); HGB HCT DIFFERENCE 0.5; LYMPHOCYTES % (AUTO) 9.9 % (13-45); MEAN CORPUSCULAR HGB CONC 33.8 g/dL (32.0-36.0); MEAN CORPUSCULAR VOLUME 86 fl (80-97); MONOCYTES % (AUTO) 10.3 % (3-13); RED BLOOD COUNT 5.34 10^6/uL (4.35-5.55); RED CELL DISTRIBUTION WIDTH 13.3 % (11.5-14.0); SEGMENTED NEUTROPHILS % (AUTO) 77.8 % (42-78)
--- NOTE | 2017-02-01 09:20 | Physician Advisory Note ---
Physician Advisor ProgressNote .: [facility] I have reviewed the medical record for this patient. Physician Advisor Statement: Possible documentation opportunities if attending agrees: 1. "hyponatremia, likely due to intravascular volume depletion" 2. ? - "mild rhabdomyolysis due to " [fall w/syncope? ...] 3. "acutely worsened back pain, likely due to " 4. "Medical Necessity" - please document, if you agree, the pt's ongoing N/V each day so far (documented by nursing), what concerns requiring pt to remain in hospital each day for his safety. Does he need change to IV abx now due to all the N/V? Has he been able to take adequate po intake? - Due to N/V or pain or ....? If you agree with reviewer assessment below about status, please document points you find pertinent and consider change to Inpt status, even if pt able to go home later today. 5. R.e. SIRS in this case - this dx doesn't "count" for higher complexity when due to infectious cause unless attending feels pt had sepsis & documents that. It's ok to leave documentation "as is" in this case, since attending appeared not to expect sepsis beyond testing BCs to confirm its absence. Discussion: 41yo male w/ chronic co-morbidities including chronic upper back pain, HTN, thyroid CA/hypothyroidism, PTSD, tobacco, THC - presented 3/ PM to ED w/CP/back pain/syncope w/temporary facial drooping/ confusion/blurry vision, severely worsened back pain with radiation to all extremities, nausea. (+) Temp up to 100.8, P88, R22, BP 144/66, obvious distress, inability to stay still, moaning w/pain, tender paravertebral areas, tenderness bilat lateral thighs, deep RLQ tenderness after 10mg morphine, WBC 19.9, Na 135, U/A w/tr LE, CK 420, CRP 37.1, dilated Asc Aorta slightly >4cm, possible mild ileus on CT. Pt had several episodes of N/V in ED, which pt attributed to pain. Attending documented concern for discitis. Attending ordered ortho consult, tele, IVF @125, morphine 2mg prn, I/O. Status: On re-assessment 01/30, attending reported pt lethargic after meds for pain, very sore throat, unusual affect, multiple excoriated lesions on head & all extremities. Repeat WBC 22.6 with bandemia. Na 132.5, CK up to 555, TSH 19.9. Attending documented SIRS present. Attending ordered strep screen, repeat BCs, ur cx, f/u CBC, 1L NS wide open x1L & then 150/hr, prn Zofran, IV vanc/ertapenem, lidocaine patch, daily Miralax , salt water rinses. Later changed abx to po Amox after strep screen (+). Nursing note that PM indicated pt having N/V/retching. On 01/31, Pt without BM yet. Still w/sore throat, feeling poorly overall, unusual affect/mood. Pt still with N/V per nursing notes both AM & PM. WBC 22.6 still despite multiple abx the day before, Na 135.7. Attending documented concern for discitis again. Attending ordered Celebrex, MRI, Haldol x1 to help him tolerate MRI, lidocaine patches, repeat CBC. T-spine MRI showed small disc bulge at T8-9, with possible mild impingement of thoracic cord. Upper lumbar area incompletely imaged due to pt refusal to complete exam. Nursing documentation indicates only 25% of supper was consumed. On 02/01, pt with 2 BMs after laxative tx. Needing IV morphine again, twice in 6 hrs, after using only po opioids on 01/31 for pain. Tx in inpatient hospital setting medically reasonable & necessary to protect pt' s health, safety, & medical condition due to ongoing N/V which could cause po abx tx outpt to be inadequate, continued/worsened leukocytosis despite abx therapy to cover the known strep throat - therefore leading to concern for additional source again such as acute discitis, with suboptimal MRI evaluation due to pt's inability to tolerate procedure, overall poor response to appropriate therapy. Appropriate for Inpatient status. Thanks for your help with documentation accuracy/specificity improvement! Kaleigh Phillips MD [facility] Physician Advisor, Fellow of Hospital Medicine
[2017-02-01] MEDS: ASPIRIN 325 MG TABLET PO SCH (10:03)
[2017-02-01] MEDS: DULOXETINE HCL 30 MG CAPSULE.DR PO SCH (10:03)
[2017-02-01] MEDS: SENNOSIDES/DOCUSATE 8.6-50 MG 1 EACH TABLET PO SCH (10:03)
[2017-02-01] MEDS: DOCUSATE SODIUM 100 MG CAPSULE PO SCH (10:03)
[2017-02-01] MEDS: LEVOTHYROXINE SODIUM 0.1 MG TABLET PO SCH (10:03)
[2017-02-01] MEDS: CLONAZEPAM 1 MG TABLET PO SCH (10:03)
[2017-02-01] MEDS: PHENOL/SODIUM PHENOLATE 100 SPRAY/177 ML BOTTLE PO PRN (10:11)
[2017-02-01] MEDS: LISINOPRIL 10 MG TABLET PO SCH (11:57)
[2017-02-01] MEDS: LIDOCAINE 5% (700 MG) TRANSDERMAL ADH..PATCH TP SCH (12:02)
[2017-02-01 12:29] VITALS: BP 110/69
--- NOTE | 2017-02-02 | PDOC DISCHARGE SUMMARY ---
General - Admit/Disc Date/PCP Admission Date/Primary Care Provider: 01/30/17 06:29 KARTHIK SERRATOTIMMY Discharge Date: 02/02/17 - Discharge Diagnosis (1) SIRS (systemic inflammatory response syndrome) Is this a current diagnosis for this admission?: Yes (2) Strep throat Is this a current diagnosis for this admission?: Yes (3) Acute midline thoracic back pain Is this a current diagnosis for this admission?: Yes (4) Syncope and collapse Is this a current diagnosis for this admission?: Yes (5) History of thyroid cancer Is this a current diagnosis for this admission?: Yes (6) Upper back pain, chronic Is this a current diagnosis for this admission?: Yes (7) PTSD (post-traumatic stress disorder) Is this a current diagnosis for this admission?: Yes - Additional Information Resuscitation Status: Full Code Discharge Diet: Cardiac Discharge Activity: Activity As Tolerated Home Medications: Gabapentin [Neurontin 300 mg Capsule] 300 mg PO Q8 01/30/17 Oxycodone HCl [Oxycontin] 20 mg PO Q8 01/30/17 Amoxicillin Trihydrate [Amoxil 500 mg Capsule] 500 mg PO MEALS #21 capsule 02/01 Aspirin [Aspirin 325 mg Tablet] 325 mg PO DAILY tablet 02/01/17 Celecoxib [Celebrex 200 mg Capsule] 200 mg PO BID #60 capsule 02/01/17 Clonazepam [Klonopin 1 mg Tablet] 1 mg PO BID tablet 02/01/17 Docusate Sodium [Colace 100 mg Capsule] 100 mg PO BID #60 capsule 02/01/17 Lidocaine [Lidoderm 5% (700 mg) Transdermal Patch] 2 patch TP DAILY@1200 #60 adh..patch 02/01/17 Lisinopril [Prinivil 10 mg Tablet] 20 mg PO DAILY@1200 tablet 02/01/17 Mometasone Furoate [Asmanex] 220 mcg IH PRN PRN 02/01/17 History of Present Illness History of Present Illness: Please see H&P for full history of present illness Hospital Course Hospital Course: Patient was brought into the hospital initially for his SIRS-like presentation and acute back pain which was concerning at the time for discitis. MRI was performed which revealed no discitis but a paracentral disc bulge. Patient however was found to have strep throat and started on amoxicillin with excellent improvement noted decrease in his white count. Patient was discharged home in stable condition with instructions to complete his amoxicillin. He is to follow with his primary care provider within one week. Patient had many complaints of his chronic ongoing pain and was advised to follow-up with his regular pain management. He was given a prescription for Lidoderm patches. Physical Exam Vital Signs: Temp Pulse Resp BP Pulse Ox 97.3 F 71 19 181/87 H 94 02/01/17 07:26 02/01/17 07:26 02/01/17 07:26 02/01/17 07:26 02/01/17 07:33 Intake & Output 01/31/17 02/01/17 02/02/17 06:59 06:59 06:59 Intake Total 3575 990 Output Total 300 Balance 3275 990 Weight 103.1 kg 100 kg Exam: General: Awake alert and oriented x3, no acute respiratory distress HEENT: AT/NC, PERRL, EOMI, oropharynx is moist, pink, no scleral icterus, no conjunctival injection Neck: No JVD, trachea midline Chest: Clear to auscultation bilaterally, no wheezes rhonchi or rales CV: Regular rate and rhythm, normal S1 and S2, no murmur, rub, or gallop Abdomen: Soft, nontender to palpation, nondistended, hypoactive bowel sounds; no rebound, rigidity, or guarding Extremities: No cyanosis, clubbing or edema Neuro: Cranial nerves II through XII are grossly intact without focal deficits; awake alert and oriented x3 Psych: Unusual mood and affect Skin: Patient has multiple excoriated skin lesions on his head and bilateral arms and legs Results Laboratory Results: 02/01/17 08:32 01/31/17 09:45 02/01/17 08:32 WBC 14.0 H RBC 5.34 Hgb 15.5 Hct 46.0 MCV 86 MCH 29.0 MCHC 33.8 RDW 13.3 Plt Count 232 Seg Neutrophils % 77.8 Lymphocytes % 9.9 L Monocytes % 10.3 Eosinophils % 1.8 Basophils % 0.2 Absolute Neutrophils 10.9 H Absolute Lymphocytes 1.4 Absolute Monocytes 1.4 Absolute Eosinophils 0.3 Absolute Basophils 0.0 01/30/17 07:05 Creatine Kinase 555 H Impressions: Chest X-Ray 01/29/17 11:55 IMPRESSION: NO SIGNIFICANT RADIOGRAPHIC FINDING IN THE CHEST. Chest CT 01/29/17 16:31 IMPRESSION: 1. No evidence of pneumonia. Lungs are clear. 2. Dilated ascending aorta, just over 4 cm but no evidence of jason aneurysm or dissection. 3. Bones of the thoracic spine look normal by CT. Head CT 01/29/17 16:31 IMPRESSION: No acute intracranial abnormality. Abdomen/Pelvis CT 01/29/17 18:17 IMPRESSION: 1. No acute or suspicious abdominopelvic abnormality suggested beyond what may be a mild ileus. No suggestion of inflammatory process or abscess. Thoracic Spine MRI 01/31/17 00:00 IMPRESSION: LIMITED STUDY. NO ABNORMAL DISC SIGNAL. SMALL LEFT PARACENTRAL DISC BULGE AT T8-T9 WITH POSSIBLE MILD IMPINGEMENT OF THE THORACIC CORD. Qualifiers PATEINT BEING DISCHARGED WITH ANY OF THE FOLLOWING DIAGNOSIS?: No Plan Time Spent: Less than 30 Minutes
== END 2017-02-01 12:38 | disposition home or self-care (01) ==
LOC: ER 11:51 → UNDOADMOB 01-30 01:07 → EH 01-30 01:07 → 5 01-30 16:45
PROVIDERS: ADMIT Family Medicine; ATTEND Family Medicine
DX: R65.10 Systemic inflammatory response syndrome (SIRS) of non-infectious origin without acute organ dysfunction (principal); J02.0 Streptococcal pharyngitis; M54.6 Pain in thoracic spine; R55 Syncope and collapse; G89.29 Other chronic pain; F43.10 Post-traumatic stress disorder, unspecified; Z85.850 Personal history of malignant neoplasm of thyroid; D72.829 Elevated white blood cell count, unspecified; F17.210 Nicotine dependence, cigarettes, uncomplicated
CPT/HCPCS: 93005; 99285; 96374; 96375; 36415 ×4; 87040 ×2; 87086; 84439; 82553; 87880; 82550 ×2; 83690; 83735 ×2; 84443; 85025 ×4; 85652; 86140; 80048 ×2; 80053; 81001; 84484; 80307; 84481; 85379; 87804; 72146 ×2; 71020; 70450; 71260; 74176; 93010; G0378 ×4; J3490 ×7; S0119; J1630; J1335; J1885 ×3; J2270 ×3; J1650 ×3; J2060; J2550; J2405 ×3; J7030 ×2

== ENCOUNTER 2017-03-11 01:59 | Emergency (ER) | payer OTHER, MEDICAID ==
[2017-03-11] MEDS ORDERED: CLONAZEPAM 1 MG TABLET PO ONE (03:51)
--- NOTE | 2017-03-11 03:53 | ER Document Report ---
ED Cardiac - General Chief Complaint: Chest Pain Stated Complaint: CHEST PAIN,SHORTNESS OF BREATH Time seen by provider: 03:50 Notes: Patient is a 41-year-old male that comes emergency department for chief complaint of chest pain and shortness of breath. Patient states that he suddenly awoke from sleep, he states he became anxious and began to hyperventilate, he states that after a short period of hyperventilating he started feeling pain in that radiated around the right side of his chest. Patient states he has had this intermittently for the past 4 days. He states he called EMS, he was given 324 mg of aspirin and 1 sublingual nitroglycerin. He states he feels improved at this time but is occasionally having shooting pain. He states he has a history of panic attacks, states he normally takes Klonopin but did not take any Klonopin today, he states that he had a negative cardiac catheterization a few years ago, he does smoke, he has chronic back pain that he takes OxyContin for, he denies any family history of cardiac disease, he denies history of PE or family history of this, he denies any recent surgery, travel, or lower extremity swelling. Patient does state that he has had a mild cough for a few days. TRAVEL OUTSIDE OF THE [place] IN LAST 30 DAYS: No - Related Data Allergies/Adverse Reactions: No Known Allergies Allergy (Verified 03/11/17 02:10) Past Medical History - General Information source: Patient - Social History Smoking Status: Current Every Day Smoker Smoking Education Provided: Yes - <3 min Drug Abuse: None Lives with: Family Family History: Reviewed & Not Pertinent - Past Medical History Cardiac Medical History: Reports: Hx Hypertension Denies: Hx DVT, Hx Heart Attack, Hx Hypercholesterolemia, Hx Pulmonary Embolism Pulmonary Medical History: Denies: Hx Asthma, Hx COPD Endocrine Medical History: Reports: Hx Hypothyroidism. Denies: Hx Diabetes Mellitus Type 1, Hx Diabetes Mellitus Type 2, Hx Hyperthyroidism Renal/ Medical History: Denies: Hx Peritoneal Dialysis GI Medical History: Reports: Hx Gastroesophageal Reflux Disease. 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 Infectious Medical History: Denies: Hx Hepatitis Past Surgical History: Reports: Hx Appendectomy, Hx Cardiac Catheterization, Hx Orthopedic Surgery - brachial artery repair, Hx Thyroid Surgery - removal, Other - Hx Brain Surgery - Immunizations Hx Diphtheria, Pertussis, Tetanus Vaccination: No Review of Systems - Review of Systems Constitutional: No symptoms reported EENT: No symptoms reported Cardiovascular: See HPI Respiratory: See HPI Gastrointestinal: No symptoms reported Genitourinary: No symptoms reported Male Genitourinary: No symptoms reported Musculoskeletal: No symptoms reported Skin: No symptoms reported Hematologic/Lymphatic: No symptoms reported Neurological/Psychological: See HPI Physical Exam - Vital signs Vitals: Temp Pulse Resp BP Pulse Ox 98.2 F 78 18 133/90 H 96 03/11/17 02:06 03/11/17 02:06 03/11/17 02:06 03/11/17 02:06 03/11/17 02:06 Interpretation: Normal - General General appearance: Anxious In distress: None - Patient speaking rapidly, however he appears to be in no distress. Patient smells of smoke - HEENT Head: Normocephalic, Atraumatic Eyes: Normal Conjunctiva: Normal Extraocular movements intact: Yes Eyelashes: Normal Pupils: PERRL Sinus: Normal Nasal: Normal Mouth/Lips: Normal Mucous membranes: Normal Pharynx: Normal Neck: Normal - Respiratory Respiratory status: No respiratory distress Chest status: Nontender Breath sounds: Normal. No: Decreased air movement, Wheezing Chest palpation: Normal - Cardiovascular Rhythm: Regular. No: Tachycardia Heart sounds: Normal auscultation, S1 appreciated, S2 appreciated Murmur: No - Abdominal Inspection: Normal Distension: No distension Bowel sounds: Normal Tenderness: Nontender. No: Tender, Guarding - Back Back: Normal, Nontender. No: Tender, CVA tenderness - Extremities General upper extremity: Normal inspection, Nontender, Normal color, Normal ROM , Normal temperature General lower extremity: Normal inspection, Nontender, Normal color, Normal ROM , Normal temperature, Normal weight bearing. No: Hu's sign - Neurological Neuro grossly intact: Yes Cognition: Normal Orientation: AAOx4 Emily Coma Scale Eye Opening: Spontaneous Emily Coma Scale Verbal: Oriented Moran Coma Scale Motor: Obeys Commands Emily Coma Scale Total: 15 Speech: Normal Motor strength normal: LUE, RUE, LLE, RLE Sensory: Normal - Psychological Associated symptoms: Anxious - patient appears somewhat nervous, speaks rapidly - Skin Skin Temperature: Warm Skin Moisture: Dry Skin Color: Normal Course - Re-evaluation Re-evalutation: EKG sinus rhythm with no T-wave inversions or ST segment changes in consecutive leads. Cardiac enzymes unremarkable. Chest x-ray unremarkable. CBC shows leukocytosis, however patient was hyperventilating by report. This is nonspecific. No fever. Signs of infection. Chemistries unremarkable. Patient given Klonopin, on reevaluation patient states that his symptoms have completely resolved. Symptoms have been present for 4 days, very atypical with right-sided sharp pain after beginning hyperventilating, consistent with panic attack. Very low suspicion of ACS or PE. Discussed smoking cessation, discussed treatment of panic attacks, patient states that he now is getting medications from the [place] and they're supposed to be coming in within the next 4 days but he does not have his Klonopin until then, patient was provided with a few of these, I did discuss follow-up, return precautions, patient states great fullness and agreement. - Vital Signs Vital signs: Temp Pulse Resp BP Pulse Ox 98.1 F 70 18 130/80 H 96 03/11/17 05:54 03/11/17 05:54 03/11/17 05:54 03/11/17 05:54 03/11/17 05:54 - Laboratory Result Diagrams: 03/11/17 04:00 03/11/17 04:24 Laboratory results interpreted by me: 03/11/17 03/11/17 04:00 04:24 WBC 15.2 H RDW 14.9 H Absolute Neutrophils 10.4 H Calcium 10.4 H Discharge - Discharge Clinical Impression: Hyperventilation, Right-sided chest pain, Anxiety, Tobacco abuse Condition: Stable Disposition: HOME, SELF-CARE Additional Instructions: Workup shows no acute abnormalities. Follow-up with your provider, take the Klonopin for anxiety as directed. Stop smoking. Return to the emergency department for any return or new concerning symptoms. Prescriptions: Clonazepam [Klonopin 1 mg Tablet] 1 mg PO BID #10 tablet Referrals: KARTHIK SERRATO FNP [Primary Care Provider] - Follow up as needed
[2017-03-11 04:09] LABS: ABSOLUTE BASOPHILS # (AUTO) 0.1 10^3/uL (0.0-0.2); ABSOLUTE EOSINOPHILS # (AUTO) 0.4 10^3/uL (0.0-0.6); ABSOLUTE MONOCYTES (AUTO) 1.3 10^3/uL (0.1-1.4); ABSOLUTE NEUT (AUTO) 10.4 10^3/uL (1.7-8.2); BASOPHILS % (AUTO) 0.6 % (0-2); EOSINOPHILS % (AUTO) 2.6 % (0-6); HEMATOCRIT 43.9 % (37.9-51.0); HEMOGLOBIN 15.2 g/dL (13.5-17.0); HGB HCT DIFFERENCE 1.7; LYMPHOCYTES % (AUTO) 19.7 % (13-45); MEAN CORPUSCULAR HEMOGLOBIN 29.3 pg (27.0-33.4); MEAN CORPUSCULAR HGB CONC 34.7 g/dL (32.0-36.0); MEAN CORPUSCULAR VOLUME 85 fl (80-97); MONOCYTES % (AUTO) 8.6 % (3-13); RED BLOOD COUNT 5.19 10^6/uL (4.35-5.55); RED CELL DISTRIBUTION WIDTH 14.9 % (11.5-14.0); SEGMENTED NEUTROPHILS % (AUTO) 68.5 % (42-78); WHITE BLOOD COUNT 15.2 10^3/uL (4.0-10.5)
[2017-03-11 04:49] LABS: ALANINE AMINOTRANSFERASE 48 U/L (21-72); ALBUMIN 4.8 g/dL (3.5-5.0); ALKALINE PHOSPHATASE 45 U/L (38-126); ANION GAP 14 (5-19); ASPARTATE AMINO TRANSFERASE 29 U/L (17-59); BILIRUBIN,DIRECT 0.3 mg/dL (0.0-0.4); BILIRUBIN,TOTAL 0.6 mg/dL (0.2-1.3); BLOOD UREA NITROGEN 13 mg/dL (7-20); CALCIUM 10.4 mg/dL (8.4-10.2); CARBON DIOXIDE 27 mmol/L (22-30); CHLORIDE 102 mmol/L (98-107); CREATINE KINASE 71 U/L (55-170); GLUCOSE 101 mg/dL (75-110); SODIUM 143.4 mmol/L (137-145); TOTAL PROTEIN 7.7 g/dL (6.3-8.2)
[2017-03-11 05:01] LABS: CREATINE KINASE MB 0.66 ng/mL (<4.55)
[2017-03-11 05:03] LABS: TROPONIN I < 0.012 ng/mL
[2017-03-11 05:54] VITALS: BP 130/80
--- NOTE | 2017-03-11 21:55 | EKG REPORT ---
SEVERITY:- OTHERWISE NORMAL ECG - SINUS RHYTHM BORDERLINE LEFT AXIS DEVIATION : Confirmed by: Cecily Mao MD 11-Mar-2017 21:54:11
== END 2017-03-11 05:55 | disposition home or self-care (01) ==
LOC: ER 01:59
DX: R06.4 Hyperventilation (principal); F41.9 Anxiety disorder, unspecified; F17.200 Nicotine dependence, unspecified, uncomplicated; R07.9 Chest pain, unspecified; R06.02 Shortness of breath; I10 Essential (primary) hypertension; E03.9 Hypothyroidism, unspecified; K21.9 Gastro-esophageal reflux disease without esophagitis
CPT/HCPCS: 36415; 71020; 80053; 82550; 82553; 84484; 85025; 93005; 93010; 99285

== ENCOUNTER 2017-05-01 20:39 | Emergency (ER) | payer OTHER, MEDICAID ==
[2017-05-01 22:57] LABS: ABSOLUTE BASOPHILS # (AUTO) 0.1 10^3/uL (0.0-0.2); ABSOLUTE EOSINOPHILS # (AUTO) 0.5 10^3/uL (0.0-0.6); ABSOLUTE LYMPHOCYTES (AUTO) 2.2 10^3/uL (0.5-4.7); ABSOLUTE NEUT (AUTO) 6.7 10^3/uL (1.7-8.2); BASOPHILS % (AUTO) 0.6 % (0-2); EOSINOPHILS % (AUTO) 4.8 % (0-6); HEMATOCRIT 44.5 % (37.9-51.0); HEMOGLOBIN 14.9 g/dL (13.5-17.0); HGB HCT DIFFERENCE 0.2; LYMPHOCYTES % (AUTO) 21.1 % (13-45); MEAN CORPUSCULAR HEMOGLOBIN 30.1 pg (27.0-33.4); MEAN CORPUSCULAR HGB CONC 33.5 g/dL (32.0-36.0); MEAN CORPUSCULAR VOLUME 90 fl (80-97); MONOCYTES % (AUTO) 9.8 % (3-13); RED BLOOD COUNT 4.95 10^6/uL (4.35-5.55); RED CELL DISTRIBUTION WIDTH 13.9 % (11.5-14.0); SEGMENTED NEUTROPHILS % (AUTO) 63.7 % (42-78); WHITE BLOOD COUNT 10.4 10^3/uL (4.0-10.5)
[2017-05-01] MEDS ORDERED: PREDNISONE 20 MG TABLET PO ONE (23:45)
--- NOTE | 2017-05-01 23:55 | ER Document Report ---
ED General - General Chief Complaint: Rash Stated Complaint: POSSIBLE RASH Time Seen by Provider: 05/01/17 22:04 Notes: Patient is a 41-year-old male who presents with complaint of a rash that started yesterday. Rash is only over the lower extremities below the knees. He will have a few small dots that than coalesce into patches. He says it is sore. It does not itch. He denies previous history of allergy to poison delia. Denies recent fevers or infections. No vomiting. He does have a history of rheumatoid arthritis. He is not currently on steroids. He does have history of thyroid cancer. He is cancer free currently with no radiation or chemotherapy. No new medications in the last month. TRAVEL OUTSIDE OF THE [place] IN LAST 30 DAYS: No - Related Data Allergies/Adverse Reactions: No Known Allergies Allergy (Verified 03/11/17 02:10) Past Medical History - Social History Smoking Status: Unknown if Ever Smoked Frequency of alcohol use: None Drug Abuse: None Family History: Reviewed & Not Pertinent Patient has suicidal ideation: No Patient has homicidal ideation: No - Past Medical History Cardiac Medical History: Reports: Hx Hypertension Denies: Hx DVT, Hx Heart Attack, Hx Hypercholesterolemia, Hx Pulmonary Embolism Pulmonary Medical History: Denies: Hx Asthma, Hx COPD Endocrine Medical History: Reports: Hx Hypothyroidism. Denies: Hx Diabetes Mellitus Type 1, Hx Diabetes Mellitus Type 2, Hx Hyperthyroidism Renal/ Medical History: Denies: Hx Peritoneal Dialysis GI Medical History: Reports: Hx Gastroesophageal Reflux Disease. 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 Infectious Medical History: Denies: Hx Hepatitis Past Surgical History: Reports: Hx Appendectomy, Hx Cardiac Catheterization, Hx Orthopedic Surgery - brachial artery repair, Hx Thyroid Surgery - removal, Other - Hx Brain Surgery - Immunizations Hx Diphtheria, Pertussis, Tetanus Vaccination: No Review of Systems - Review of Systems Notes: My Normal Review Basic REVIEW OF SYSTEMS: CONSTITUTIONAL : Denies fever, chills, or sweats. Denies recent illness. EENT: Denies eye, ear, throat, or mouth pain or symptoms. Denies nasal or sinus congestion. CARDIOVASCULAR: Denies chest pain. RESPIRATORY: Denies cough, cold, or chest congestion. Denies shortness of breath, difficulty breathing, or wheezing. GASTROINTESTINAL: Denies abdominal pain. Denies nausea, vomiting, or diarrhea. Denies constipation. Last BM: MUSCULOSKELETAL: Denies neck or back pain or joint pain or swelling. SKIN: Rash On lower extremities. NEUROLOGICAL: Denies altered mental status or loss of consciousness. Denies headache. Denies weakness or paralysis or loss of use of either side. Denies problems with gait or speech. Denies sensory or motor loss. ALL OTHER SYSTEMS REVIEWED AND NEGATIVE. Physical Exam - Vital signs Vitals: Temp Pulse Resp BP Pulse Ox 97.9 F 77 16 108/69 95 05/01/17 20:44 05/01/17 20:44 05/01/17 20:44 05/01/17 20:44 05/01/17 20:44 - Notes Notes: General Appearance: Well nourished, alert, cooperative, no acute distress, no obvious discomfort. Vitals: reviewed, See vital signs table. Eyes: PERRL, EOMI, Conjuctiva clear Mouth: No decreasd moisture Throat: No tonsillar inflammation, No airway obstruction, No lymphadenopathy Lungs: No wheezing, No rales, No rhonci, No accessory muscle use, good air exchange bilaterally. Heart: Normal rate, Regular rythm, No murmur, no rub Abdomen: Normal BS, soft, No rigidity, No abdominal tenderness, No guarding, no rebound, no abdominal masses, no organomegaly Extremities: strength 5/5 in all extremities, good pulses in all extremities, no swelling or tenderness in the extremities, no edema. Skin: erythematous rash on legs that is in linear blotches. it is partially blanchable. Mild tenderness to palpation Neuro: speech clear, oriented x 3, normal affect, responds appropriately to questions. Course - Vital Signs Vital signs: Temp Pulse Resp BP Pulse Ox 97.4 F 72 16 112/74 96 05/02/17 00:45 05/02/17 00:45 05/02/17 00:45 05/02/17 00:45 05/02/17 00:45 - Laboratory Result Diagrams: 05/01/17 22:40 - Transfer of Care Notes: 05/03/17 06:42 Patient's rash on visual examination looks just like poison delia or poison oak dermatitis; however, the patient says he is not allergic to those and the rash does not itch. Has no systemic symptoms. He otherwise looks well. Some white count are normal. Will start him on steroids to see if this helps the rash. I will have him follow-up closely with his primary care doctor for evaluation. The rash continues to recur he will need follow-up with dermatology for biopsy. Patient agrees with plan and will be discharged home. Dictation of this chart was performed using voice recognition software; therefore, there may be some unintended grammatical errors. Discharge - Discharge Clinical Impression: Rash Condition: Good Disposition: HOME, SELF-CARE Additional Instructions: Please return to the ER immediately if you develop worsening of your rash, fevers, or feel unwell. Please follow up with your doctor in 2 days. If the rash persists you will need to see a selector packer. Prescriptions: Prednisone 10 mg PO ASDIR #42 tablet
[2017-05-02 01:01] VITALS: BP 112/74
== END 2017-05-02 00:45 | disposition home or self-care (01) ==
LOC: ER 20:39
DX: R21 Rash and other nonspecific skin eruption (principal)
CPT/HCPCS: 99283; 36415; 85025; J7512

== ENCOUNTER 2017-05-12 23:46 | Emergency (ER) | payer OTHER, MEDICAID ==
--- NOTE | 2017-05-13 00:11 | ER Document Report ---
ED General - General Stated Complaint: OVERDOSE Time Seen by Provider: 05/12/17 23:55 Information source: Emergency Med Personnel Cannot obtain history due to: Intoxicated, Altered mental status Notes: Patient is a 41-year-old male unknown past medical history who presents now after ingesting a total of 80 mg of zolpidem and 20 mg of clonazepam in a suicide attempt. He did tell his that he was trying to harm himself. At time of arrival patient is obtunded, responsive only to noxious stimuli and unable to provide any additional meaningful history. Review of medical records does not reveal any history of psychiatric diagnoses or prior overdose attempts. TRAVEL OUTSIDE OF THE [place] IN LAST 30 DAYS: No - Related Data Allergies/Adverse Reactions: No Known Allergies Allergy (Verified 03/11/17 02:10) Home Medications: Current Home Medications Celecoxib [Celebrex 200 mg Capsule] 200 mg PO Q12 05/13/17 [History] Clonazepam [Klonopin] 1 mg PO BID PRN 05/13/17 [History] Gabapentin 600 mg PO TID 05/13/17 [History] Levothyroxine Sodium [Synthroid 0.112 mg Tablet] 112 mcg PO DAILY 05/13/17 [ History] Zolpidem Tartrate 10 mg PO QHS PRN 05/13/17 [History] Past Medical History - General Information source: Emergency Med Personnel Cannot obtain history due to: Uncooperative, Altered mental status - Social History Smoking Status: Unknown if Ever Smoked Family History: Reviewed & Not Pertinent - Past Medical History Cardiac Medical History: Reports: Hx Hypertension Denies: Hx DVT, Hx Heart Attack, Hx Hypercholesterolemia, Hx Pulmonary Embolism Pulmonary Medical History: Denies: Hx Asthma, Hx COPD Endocrine Medical History: Reports: Hx Hypothyroidism. Denies: Hx Diabetes Mellitus Type 1, Hx Diabetes Mellitus Type 2, Hx Hyperthyroidism Renal/ Medical History: Denies: Hx Peritoneal Dialysis GI Medical History: Reports: Hx Gastroesophageal Reflux Disease. 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 Infectious Medical History: Denies: Hx Hepatitis Past Surgical History: Reports: Hx Appendectomy, Hx Cardiac Catheterization, Hx Orthopedic Surgery - brachial artery repair, Hx Thyroid Surgery - removal, Other - Hx Brain Surgery - Immunizations Hx Diphtheria, Pertussis, Tetanus Vaccination: No Review of Systems - Review of Systems -: Yes ROS unobtainable due to patient's medical condition Physical Exam - Vital signs Vitals: Resp 18 05/12/17 23:51 Interpretation: Normal Notes: PHYSICAL EXAMINATION: GENERAL: Somnolent, GCS of 9. HEAD: Atraumatic, normocephalic. EYES: Pupils equal round and reactive to light, extraocular movements intact, sclera anicteric, conjunctiva are normal. ENT: nares patent, oropharynx clear without exudates. Moist mucous membranes. NECK: supple without lymphadenopathy LUNGS: Breath sounds clear to auscultation bilaterally and equal. No wheezes rales or rhonchi. HEART: Regular rate and rhythm without murmurs ABDOMEN: Soft, nontender, normoactive bowel sounds. No guarding, no rebound. No masses appreciated. EXTREMITIES: no pitting or edema. No cyanosis. NEUROLOGICAL: Moves all extremities spontaneously to noxious stimuli. Does not follow commands or open eyes on verbal command. PSYCH: Somnolent SKIN: Warm, Dry, normal turgor, no rashes or lesions noted. Course - Re-evaluation Re-evalutation: 05/13/17 00:09 Patient presents obtunded but responsive to noxious stimuli after apparently taking a total of 80 mg of zolpidem and 20 mg of clonazepam in a suicide attempt. He is protecting his airway, breathing 15-16 times a minute and saturating 95% on room air. Nasopharyngeal airway was also placed with appropriate gag response for ventilatory assistance. The patient has been placed on firer low pressure. Poison control has been contacted. All screening laboratories have been sent. He was monitored very closely as he remains at moderate risk for decompensation and airway loss. He is critically ill at this time and not yet medically cleared for psychiatric evaluation. Will be placed on involuntary commitment. 05/13/17 01:08 Patient has woken up, now alert and oriented, speaking in clear sentences although remains somewhat somnolent. GCS 15. He is now in stable condition. 05/13/17 02:31 Patient remained hemodynamically within normal limits, continues to protect his airway. Answers questions appropriately. Medical screening laboratories are unremarkable. He is medically cleared for evaluation by psychiatry at this time. - Vital Signs Vital signs: Temp Pulse Resp BP Pulse Ox 20 133/96 H 97 05/13/17 01:01 05/13/17 01:01 05/13/17 01:01 - Laboratory Result Diagrams: 05/13/17 00:20 05/13/17 00:20 Laboratory results interpreted by me: 05/13/17 05/13/17 00:20 00:20 WBC 11.7 H Salicylates < 1.0 L Acetaminophen < 10 L - EKG Interpretation by Me Additional EKG results interpreted by me: 05/13/17 00:10 Normal sinus rhythm. Rate 96. No ST elevations or depressions. QTC is 435 Critical Care Note - Critical Care Note Total time excluding time spent on procedures (mins): 40 Comments: Critical care time spent obtaining history from patient or surrogate, discussions with consultants, development of treatment plan with patient or surrogate, evaluation of patient's response to treatment, examination of patient , ordering and performing treatments and interventions, ordering and review of laboratory studies, re-evaluation of patient's condition, ordering and review of radiographic studies and review of old charts
[2017-05-13 00:43] LABS: ABSOLUTE BASOPHILS # (AUTO) 0.1 10^3/uL (0.0-0.2); ABSOLUTE EOSINOPHILS # (AUTO) 0.5 10^3/uL (0.0-0.6); ABSOLUTE LYMPHOCYTES (AUTO) 2.4 10^3/uL (0.5-4.7); ABSOLUTE MONOCYTES (AUTO) 1.1 10^3/uL (0.1-1.4); ABSOLUTE NEUT (AUTO) 7.6 10^3/uL (1.7-8.2); BASOPHILS % (AUTO) 0.6 % (0-2); EOSINOPHILS % (AUTO) 4.1 % (0-6); HEMATOCRIT 49.1 % (37.9-51.0); HEMOGLOBIN 16.5 g/dL (13.5-17.0); HGB HCT DIFFERENCE 0.4; LYMPHOCYTES % (AUTO) 20.6 % (13-45); MEAN CORPUSCULAR HEMOGLOBIN 29.9 pg (27.0-33.4); MEAN CORPUSCULAR HGB CONC 33.7 g/dL (32.0-36.0); MEAN CORPUSCULAR VOLUME 89 fl (80-97); MONOCYTES % (AUTO) 9.2 % (3-13); RED BLOOD COUNT 5.53 10^6/uL (4.35-5.55); RED CELL DISTRIBUTION WIDTH 13.4 % (11.5-14.0); SEGMENTED NEUTROPHILS % (AUTO) 65.5 % (42-78); WHITE BLOOD COUNT 11.7 10^3/uL (4.0-10.5)
[2017-05-13 01:07] LABS: ALANINE AMINOTRANSFERASE 41 U/L (21-72); ALBUMIN 4.4 g/dL (3.5-5.0); ALKALINE PHOSPHATASE 48 U/L (38-126); ANION GAP 14 (5-19); ASPARTATE AMINO TRANSFERASE 23 U/L (17-59); BILIRUBIN,DIRECT 0.3 mg/dL (0.0-0.4); BILIRUBIN,TOTAL 0.3 mg/dL (0.2-1.3); BLOOD UREA NITROGEN 8 mg/dL (7-20); CALCIUM 9.9 mg/dL (8.4-10.2); CARBON DIOXIDE 24 mmol/L (22-30); CHLORIDE 106 mmol/L (98-107); CREATININE RESULT 0.94 mg/dL (0.52-1.25); GLUCOSE 102 mg/dL (75-110); POTASSIUM 4.3 mmol/L (3.6-5.0); SODIUM 143.7 mmol/L (137-145); TOTAL PROTEIN 7.2 g/dL (6.3-8.2)
[2017-05-13 01:11] LABS: ALCOHOL < 10 mg/dL (NONE DETECTED)
[2017-05-13 01:26] LABS: APPEARANCE,URINE CLEAR; BILIRUBIN,URINE NEGATIVE (NEGATIVE); GLUCOSE, URINE NEGATIVE (NEGATIVE); KETONES,URINE NEGATIVE (NEGATIVE); LEUKOCYTE ESTERASE,URINE NEGATIVE (NEGATIVE); NITRITE,URINE NEGATIVE (NEGATIVE); PROTEIN,URINE NEGATIVE (NEGATIVE); URINE BARBITURATES SCREEN NEGATIVE; URINE METHADONE SCREEN NEGATIVE; URINE OPIATES LOW NEGATIVE; URINE PHENCYCLIDINE SCREEN NEGATIVE; URINE SPECIFIC GRAVITY 1.017; UROBILINOGEN,URINE NEGATIVE mg/dL (<2.0)
[2017-05-13] MEDS ORDERED: LIDOCAINE 5% (700 MG) TRANSDERMAL ADH..PATCH TP ONE (03:57)
[2017-05-13] MEDS ORDERED: ACETAMINOPHEN 325 MG TABLET PO ONE ×2 (03:57→22:37)
[2017-05-13] MEDS ORDERED: KETOROLAC TROMETHAMINE 60 MG/2 ML SDV IM ONE (13:03)
[2017-05-13] MEDS ORDERED: OLANZAPINE INJ/PF 10 MG SDV IM ONE (17:36)
[2017-05-13] MEDS ORDERED: VENLAFAXINE HCL 37.5 MG CAP.SR.24H PO SCH (18:15)
--- NOTE | 2017-05-13 18:22 | ER Document Report ---
ED Psych Disorder / Suicide - General TRAVEL OUTSIDE OF THE [place] IN LAST 30 DAYS: No <ROXANA BAIRD - Last Filed: 05/14/17 15:00> - General Information source: Patient, Relative, [facility] Records - HPI Patient complains to provider of: Overdose - MEDICAL BILLING SERVICE Onset: Just prior to arrival Onset was: Sudden Suicide Risk Factors: Depressed, Frightened friends/family, Male, Substance abuse - appears tpo be drug seeking, Other mental health dx. Situational problems related to: Other - mother of his children Suicide Attempt Method: Overdose - pt denies he was attmepting suicide. but instead attempting to cessate the panic symptoms Overdose of: Benzodiazepine Normal mood: Yes - today Associated symptoms: Normal affect - today, Normal mood - today Similar symptoms previously: Yes Recently [facility] / [facility] <SHARONA ALLEN - Last Filed: 05/15/17 15:06> <AMARI HINDS - Last Filed: 05/15/17 15:42> - General Chief Complaint: Overdose Stated Complaint: OVERDOSE Time Seen by Provider: 05/12/17 23:55 - HPI Notes: Patient is a 41-year-old male unknown past medical history who presents now after ingesting a total of 80 mg of zolpidem and 20 mg of clonazepam in a suicide attempt. He did tell his that he was trying to harm himself. Patient states he was brought here because of overdose. He states "I swear I was trying to just stop the panic attack." He continued to disclose that his problem is PTSD and panic attacks. [facility] made [facility] attend groups which made it worse. He continues states that he stopped receiving medications in the mail when he stopped going to the [facility]. Patient then stated he does still receive Klonopin and Ambien from the [facility]. Clinician spoke with patient's mother, Josselyn [phone], she disclosed that her concern for her son is that he suffers from panic attacks. She states that he "just freaked out." She continued disclosed that last night she received a text message stating "I love you so much." She stated that she responded she left him to however then received a call from the patient's significant other stating that she needed to get over right away because the patient was taking pills and saying that he does not want to be here anymore. She states that he has done this before and is talked doctors I do think he is done it on purpose. Spoke with Miladys, patient's significant other, she states that she is very concerned at the patient suffers from major panic attacks and PTSD. She states yesterday while taking his son to the doctor he started talk about [place] with somebody. She states that by that evening he was in a major panic attack. She states that he told her "I cannot keep living with PTSD." He continued to to tell her that he cannot stop his mind that is always going and the thoughts that he thinks are "hell." She states the patient had already taken some of his medication however after stating all this he took a handful of pills in front of her. Patient is alert and orientated to person place time and circumstance. Mood is dysphoric with tearful affect. Patient denies suicidal ideation however controls demonstrate his endorsement of suicidal ideation. Patient denies homicidal ideation patient denies auditory visual hallucinations. Delusions are noted. Patient is demonstrating behaviors congruent with suffering from current panic attack i.e. quick shallow breathing, sweating, rocking back and forth, difficulty concentrating. Thought process is currently organized and linear. Conversational speech while tearful was still clear. Eye contact was good. Intellectual abilities appear to be within average range. Attention and concentration are fair. Insight, judgment, impulse control are poor 309.81 (F43.10) posttraumatic stress disorder 300.01 (F41.0) panic disorder as evidenced by patient's frequent panic attacks in addition to fear of having panic attacks. Impression\\Plan: Patient is recommended to continue under IVC. Patient is demonstrating poor insight judgment and impulse control in regards to stopping his panic attacks. Patient denies attempting to overdose however has stated to clinician and significant others statements that would support patient doing anything to stop the panic attacks. Patient is recommended for inpatient treatment. Dr. Davenport was consulted and the care management of this patient attending physician is in agreement with recommendations and disposition Clinician conducted check in with patient 05/14/2107- patient disclosed that he has not had a panic attack since last night. He continued to disclose that he slept well last night and actually slept this morning additionally. He states that he really misses his children wondering when he can go home. When asked about his prescription being empty patient states that he thinks his son is stealing them. He continued disclosed that he was going to buy save but he did not have the money this month. Clinician explained the patient presentation of panic attacks could be withdrawal symptoms also. Clinician met with patient significant other, mother and patient. They discussed possible discharge plan: Patient is stable. Patient started to demonstrate anxiety with panic when learning of not being able to go home which progressively worsened when family came to visit. Clinician notes patient had 5 visitors arrive however they rotated to ensure not all were in the room at one time. Patient states he just wants to go home which is what his created his increased anxiety. It was explained to patient that the anxiety and panic attacks were happening at home previously and at this time patient needs to be stabilized when it comes to panic attacks so it does not lead to another episode of "accidental overdose." Both patient's mother and significant other are willing to be part of discharge plan when the time is ready. (ROXANA BAIRD) Conducted check in with patient who is a 41 year old male who initially presented due to "accidental overdose" during what he reported as a panic attack. Patient has been held under IVC due to concerns of intent behind the overdose, as well as ongoing episodes of panic. Patient this morning states he is feeling improved, to include less anxious, zero episodes of panic, and just overall more peaceful. Patient discussed the precipitating events, to include the mother of his 5 children temporarily visiting and then staying with them and abruptly leaving . He states this greatly upset his daughter, which caused him increased anxiety. Patient reports he resides with his fiance, and his 5 children, of whom he has sole custody. Patient states historically, he [facility] only [facility]; however, now states he feels he should engage in opt services, like possibly group or individual counseling sessions. Patient states he has discussed with his fiance about her managing the medications in the home, he states because his 20 year old son likes to "dip into my pain meds." Prompted patient to agree that at this point , all medications in the home should be placed in a locked box, with restricted access to only his fiance who would then provide doses to him as they are due. Patient reports he is in agreement and will allow this precautionary measure to be implemented. Patient verbalizes he understands why it is important. Patient further explains the events of his accidental overdose and maintains that there was no intent to . This information is congruent with his documented earlier reports. Patient states his family attends the [employer] service and should be here to visit afterwards. Patient is A&O. Mood is euthymic with normal, smiling affect. Patient denies suicidal/homicidal ideations, intent, plan, or means. Patient denies A/V H; delusions not noted. Thought processes were organized and rational. Conversational speech was WNL. Intellectual abilities were estimated within average range. Attention and focus were good. Good eye contact. Insight, judgment, and impulse control were fair. 309.81 (F43.10) posttraumatic stress disorder 300.01 (F41.0) panic disorder as evidenced by patient's frequent panic attacks in addition to fear of having panic attacks. Patient is psychiatrically cleared and recommended for rescind IVC and discharge to his mother and fiance. Patient's mother and fiance are in agreement with plan of care. Fiance is in agreement to purchase a lock box and secure all medications within the home, to include otc and rx. Fiance in agreement to provide patient his doses only as they are prescribed. Patient is in [facility] and also has identified (suggesting improved insight and judgment/decision making ability) out patient therapy in addition to medication management. Patient denies SI/HI. I consulted with Dr. Davenport in regards to the care and management of this patient. (SHARONA ALLEN) - Related Data Allergies/Adverse Reactions: No Known Allergies Allergy (Verified 03/11/17 02:10) Home Medications: Current Home Medications Celecoxib [Celebrex 200 mg Capsule] 200 mg PO Q12 05/13/17 [History] Clonazepam [Klonopin] 1 mg PO BID PRN 05/13/17 [History] Gabapentin 600 mg PO TID 05/13/17 [History] Levothyroxine Sodium [Synthroid 0.112 mg Tablet] 112 mcg PO DAILY 05/13/17 [ History] Zolpidem Tartrate 10 mg PO QHS PRN 05/13/17 [History] Past Medical History - General Information source: Emergency Med Personnel - Social History Smoking Status: Unknown if Ever Smoked Family History: Reviewed & Not Pertinent - Past Medical History Cardiac Medical History: Reports: Hx Hypertension Denies: Hx DVT, Hx Heart Attack, Hx Hypercholesterolemia, Hx Pulmonary Embolism Pulmonary Medical History: Denies: Hx Asthma, Hx COPD Endocrine Medical History: Reports: Hx Hypothyroidism. Denies: Hx Diabetes Mellitus Type 1, Hx Diabetes Mellitus Type 2, Hx Hyperthyroidism Renal/ Medical History: Denies: Hx Peritoneal Dialysis GI Medical History: Reports: Hx Gastroesophageal Reflux Disease. 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 Infectious Medical History: Denies: Hx Hepatitis Past Surgical History: Reports: Hx Appendectomy, Hx Cardiac Catheterization, Hx Orthopedic Surgery - brachial artery repair, Hx Thyroid Surgery - removal, Other - Hx Brain Surgery - Immunizations Hx Diphtheria, Pertussis, Tetanus Vaccination: No <ROXANA BAIRD - Last Filed: 05/14/17 15:00> - General Information source: Patient, Parent, Relative, [facility] Records - Social History Smoking Status: Unknown if Ever Smoked Cigarette use (# per day): No Chew tobacco use (# tins/day): No Smoking Education Provided: Yes Frequency of alcohol use: None Lives with: Family, Spouse/Significant other Patient has suicidal ideation: No Patient has homicidal ideation: No <SHARONA ALLEN - Last Filed: 05/15/17 15:06> Course - Laboratory Result Diagrams: 05/13/17 00:20 05/13/17 00:20 <ROXANA BAIRD - Last Filed: 05/14/17 15:00> - Laboratory Result Diagrams: 05/13/17 00:20 05/13/17 00:20 <SHARONA ALLEN - Last Filed: 05/15/17 15:06> - Laboratory Result Diagrams: 05/13/17 00:20 05/13/17 00:20 <AMARI HINDS - Last Filed: 05/15/17 15:42> - Vital Signs Vital signs: Temp Pulse Resp BP Pulse Ox 97.6 F 81 16 117/68 96 05/14/17 16:00 05/15/17 06:48 05/14/17 16:00 05/15/17 06:48 05/15/17 06:48 - Laboratory Laboratory results interpreted by me: 05/13/17 05/13/17 05/13/17 00:20 00:20 16:49 WBC 11.7 H TSH 7.28 H Salicylates < 1.0 L Acetaminophen < 10 L Discharge <ROXANA BAIRD - Last Filed: 05/14/17 15:00> <SHARONA ALLEN - Last Filed: 05/15/17 15:06> <AMARI HINDS - Last Filed: 05/15/17 15:42> - Discharge Clinical Impression: PTSD (post-traumatic stress disorder), Upper back pain, chronic, Anxiety Condition: Good Disposition: HOME, SELF-CARE Additional Instructions: Anxiety The physician feels that some of your health problems are being caused by anxiety. Anxiety affects your health in many ways. Anxiety alone can cause palpitations, sweats, chest pains, abdominal pains, shortness of breath, and headaches. It contributes to ulcer disease, high blood pressure, irritable bowel syndrome, and has been shown to cause flare-ups of many other diseases. Anxiety is not a simple disorder to treat. If the anxiety is due to recent life stresses, you may simply need time to "work through" the changes. If the anxiety is due to an underlying unhappiness with yourself or due to psychiatric disturbance, professional help will be needed. Your physician can refer you for further help if needed. Anti-anxiety medication is occasionally given if the stress is acute or if you are having trouble sleeping. Chronic or frequent use of these medications is not a good idea because the body becomes reliant on it, preventing you from dealing with life's normal stresses. Post-Traumatic Stress Disorder You seem to have post-traumatic stress disorder (PTSD). PTSD can cause chronic anxiety, sleeping problems, social withdrawal, and drug abuse. It can occur following a traumatic personal experience such as an accident, rape, assault, or of a loved one, or after experiencing a war or natural disaster. Symptoms may be delayed for days or even years. Emotional numbing, the inability to express grief, is usually the earliest sign. There may be apathy or agitation, aggression, and inability to perform ordinary tasks. Often there are frightening nightmares and sudden, intruding memories of the trauma. Panic attacks and feelings of guilt are common. Alcohol and drug use make post- traumatic stress symptoms worse. Medication may be temporarily necessary to combat anxiety, panic attacks, and depression. Medicine should not be considered a "cure." You must deal with the trauma and prepare to go on. Group therapy is often helpful. This helps you "talk through" the problem with others who share your symptoms. We can provide you with an appropriate referral. [facility] Per your discharge plan of care, you have agreed to engage in outpatient counseling and medication management. In addition, you have agreed to allow your fiance to secure all medications in the home, to include otc and rx, in a lock box and only provide you your doses as they are prescribed. You are not to have free access to your medications. Please return to the ER if your symptoms worsen. Prescriptions: Clonidine HCl 0.1 mg PO QHS 14 Days Benztropine Mesylate [Cogentin 1 mg Tablet] 1 tab PO DAILY #14 tab Hydroxyzine Pamoate [Vistaril 50 mg Capsule] 50 mg PO Q6 #30 capsule Olanzapine [Zyprexa] 5 mg PO BID 14 Days Venlafaxine HCl 37.5 mg PO DAILY 14 Days Referrals: [facility] [Provider Group] - Follow up in 3-5 days (We will call you tomorrow morning with your scheduled appointment.)
[2017-05-13] MEDS: BENZTROPINE MESYLATE 1 MG TABLET PO SCH (22:37)
[2017-05-13] MEDS: HYDROXYZINE PAMOATE 50 MG CAPSULE PO PRN (22:37)
[2017-05-13] MEDS: CLONIDINE HCL 0.1 MG TABLET PO SCH (22:37)
[2017-05-13] MEDS ORDERED: DIPHENHYDRAMINE HCL 25 MG CAPSULE PO ONE (22:54)
[2017-05-13] MEDS ORDERED: PROCHLORPERAZINE MALEATE 5 MG TABLET PO ONE (22:54)
[2017-05-13] MEDS ORDERED: PROCHLORPERAZINE MALEATE 10 MG TABLET ONE (23:35)
--- NOTE | 2017-05-14 09:23 | ER Document Report ---
Doctor's Note Notes: 05/14/17 09:23 Lab work vital signs have been reviewed. At this time patient is currently stable with no overnight events requiring no intervention at this time. Patient stable for transfer or other disposition
[2017-05-14] MEDS: OLANZAPINE 5 MG TABLET PO SCH ×2 (10:07→18:19)
[2017-05-14] MEDS ORDERED: ACETAMINOPHEN 325 MG TABLET ONE (13:59)
[2017-05-14] MEDS: HYDROXYZINE PAMOATE 50 MG CAPSULE PO PRN ×2 (14:08→23:15)
--- NOTE | 2017-05-14 17:38 | EKG REPORT ---
SEVERITY:- NORMAL ECG - SINUS RHYTHM : Confirmed by: Katherine De Jesus 14-May-2017 17:37:37
--- NOTE | 2017-05-14 17:38 | EKG REPORT ---
SEVERITY:- OTHERWISE NORMAL ECG - SINUS RHYTHM BORDERLINE LEFT AXIS DEVIATION : Confirmed by: Katherine De Jesus 14-May-2017 17:37:42
[2017-05-14] MEDS ORDERED: LEVOTHYROXINE SODIUM 0.112 MG TABLET ONE (18:15)
[2017-05-14] MEDS: CLONIDINE HCL 0.1 MG TABLET PO SCH (22:15)
[2017-05-14] MEDS: BENZTROPINE MESYLATE 1 MG TABLET PO SCH (23:15)
[2017-05-14] MEDS: CELECOXIB 200 MG CAPSULE PO SCH (23:15)
[2017-05-14] MEDS: GABAPENTIN 300 MG CAPSULE PO SCH (23:15)
[2017-05-15] MEDS ORDERED: KETOROLAC TROMETHAMINE 60 MG/2 ML SDV ONE (01:27)
[2017-05-15] MEDS: HYDROXYZINE PAMOATE 50 MG CAPSULE PO PRN (07:00)
[2017-05-15] MEDS: GABAPENTIN 300 MG CAPSULE PO SCH ×2 (07:00→15:08)
--- NOTE | 2017-05-15 09:22 | ER Document Report ---
Doctor's Note Notes: 05/15/17 09:22 Lab work vital signs have been reviewed. At this time patient is currently stable with no overnight events requiring no intervention at this time. Patient stable for transfer or other disposition
[2017-05-15] MEDS ORDERED: LEVOTHYROXINE SODIUM 0.112 MG TABLET PO SCH (10:00)
[2017-05-15] MEDS: CELECOXIB 200 MG CAPSULE PO SCH (10:55)
[2017-05-15] MEDS: OLANZAPINE 5 MG TABLET PO SCH (10:55)
[2017-05-15 16:02] VITALS: BP 135/84
== END 2017-05-15 16:02 | disposition home or self-care (01) ==
LOC: ER 23:46
DX: F41.9 Anxiety disorder, unspecified (principal); F43.10 Post-traumatic stress disorder, unspecified; T42.6X2A Poisoning by other antiepileptic and sedative-hypnotic drugs, intentional self-harm, initial encounter; T42.4X2A Poisoning by benzodiazepines, intentional self-harm, initial encounter; G89.29 Other chronic pain; M54.89 Other dorsalgia; F41.0 Panic disorder [episodic paroxysmal anxiety]; R07.9 Chest pain, unspecified; I10 Essential (primary) hypertension
CPT/HCPCS: 99291; 96372; 51701; 96374; 36415; 80307 ×4; 84443; 85025; 80053; 81001; 84484; 93010 ×2; J1885 ×2; J3490

== ENCOUNTER 2018-08-28 10:25 | Emergency (ER) | payer MEDICAID, OTHER ==
[2018-08-28] MEDS ORDERED: KETOROLAC TROMETHAMINE INJ/PF 30 MG/1 ML SDV IV ONE (11:21)
[2018-08-28] MEDS ORDERED: AMPICILLIN SOD/SULBACTAM 3 GM VIAL IV ONE (11:21)
[2018-08-28] MEDS ORDERED: HYDROMORPHONE HCL INJ/PF 2 MG/ML AMPULE IV ONE (11:21)
--- NOTE | 2018-08-28 11:23 | ER Document Report ---
HPI - HPI Patient complains to provider of: Dental infection Onset: Other - 3 days Onset/Duration: Worse Quality of pain: Achy Pain Level: 5 Context: Patient complains of a dental abscess for the past 3 days. Patient reports subjective fever at home. Patient complains of multiple decayed teeth to the right lower jaw. Associated Symptoms: Other - Dental infection. denies: Fever Exacerbated by: Denies Relieved by: Denies Similar symptoms previously: Yes Recently seen / treated by doctor: No - ROS ROS below otherwise negative: Yes Systems Reviewed and Negative: Yes All other systems reviewed and negative - CONSTITUTIONAL Constitutional: REPORTS: Fever. DENIES: Chills - EENT EENT: DENIES: Sore Throat, Ear Pain, Eye problems Notes: Dental infection - CARDIOVASCULAR Cardiovascular: DENIES: Chest pain - RESPIRATORY Respiratory: DENIES: Trouble Breathing, Coughing - GASTROINTESTINAL Gastrointestinal: DENIES: Nausea - DERM Skin Color: Normal Skin Problems: None Past Medical History - General Information source: Patient - Social History Smoking Status: Current Every Day Smoker Frequency of alcohol use: None Drug Abuse: None Occupation: None Lives with: Family Family History: Reviewed & Not Pertinent Patient has suicidal ideation: No Patient has homicidal ideation: No - Past Medical History Cardiac Medical History: Reports: Hx Hypertension Denies: Hx DVT, Hx Heart Attack, Hx Hypercholesterolemia, Hx Pulmonary Embolism Pulmonary Medical History: Denies: Hx Asthma, Hx COPD Endocrine Medical History: Reports: Hx Hypothyroidism. Denies: Hx Diabetes Mellitus Type 1, Hx Diabetes Mellitus Type 2, Hx Hyperthyroidism Renal/ Medical History: Denies: Hx Peritoneal Dialysis Malignancy Medical History: Reports Other - Thyroid GI Medical History: Reports: Hx Gastroesophageal Reflux Disease. Denies: Hx Cirrhosis, Hx Hepatitis Musculoskeletal Medical History: Reports Hx Arthritis Skin Medical History: Reports Hx Eczema Psychiatric Medical History: Reports: Hx Depression, Hx Post Traumatic Stress Disorder - secondary to deployments. Infectious Medical History: Denies: Hx Hepatitis Past Surgical History: Reports: Hx Appendectomy, Hx Cardiac Catheterization, Hx Orthopedic Surgery - brachial artery repair, Hx Thyroid Surgery - removal, Other - Hx Brain Surgery - Immunizations Hx Diphtheria, Pertussis, Tetanus Vaccination: No Vertical Provider Document - CONSTITUTIONAL Agree With Documented VS: Yes Exam Limitations: No Limitations General Appearance: WD/WN, No Apparent Distress - INFECTION CONTROL TRAVEL OUTSIDE OF THE [place] IN LAST 30 DAYS: No - HEENT HEENT: Atraumatic, Normocephalic Mouth Diagram: 1 - Dental decay, fracture, adjacent gingival abscess, no trismus, no sublingual or submental swelling - NECK Neck: Normal Inspection, Supple. negative: Lymphadenopathy-Left, Lymphadenopathy-Right - RESPIRATORY Respiratory: Breath Sounds Normal, No Respiratory Distress - CARDIOVASCULAR Cardiovascular: Regular Rate, Regular Rhythm - BACK Back: Normal Inspection - MUSCULOSKELETAL/EXTREMETIES Musculoskeletal/Extremeties: MAEW - NEURO Level of Consciousness: Awake, Alert, Appropriate Motor/Sensory: No Motor Deficit - DERM Integumentary: Warm, Dry Course - Vital Signs Vital signs: Temp Pulse Resp BP Pulse Ox 97.9 F 82 18 151/102 H 98 08/28/18 10:30 08/28/18 10:30 08/28/18 10:30 08/28/18 10:30 08/28/18 10:30 Procedures - Incision and Drainage Right Type: Simple Incision Method: Incision made with needle Amount/type of drainage: Small amount of bloody drainage from dental abscess Mouth/Teeth picture: 1 - Dental abscess Discharge - Discharge Clinical Impression: Infected dental caries Condition: Stable Disposition: HOME, SELF-CARE Instructions: Augmentin ([facility]), Dentist, Dental Infection or Abscess ([facility]) Additional Instructions: Return immediately for any new or worsening symptoms Followup with your primary care provider, call tomorrow to make a followup appointment Follow-up with a dental care provider for further evaluation, call today for an appointment Prescriptions: Amox Tr/Potassium Clavulanate [Augmentin 875-125 Tablet] 1 tab PO BID 10 Days tablet Referrals: CHING HONEYCUTT DO [Primary Care Provider] - Follow up as needed [facility] [Provider Group] - Follow up as needed
[2018-08-28 12:47] VITALS: BP 143/98
== END 2018-08-28 12:48 | disposition home or self-care (01) ==
LOC: ER 10:25
DX: K04.7 Periapical abscess without sinus (principal); K02.9 Dental caries, unspecified; F17.200 Nicotine dependence, unspecified, uncomplicated; I10 Essential (primary) hypertension; Z85.850 Personal history of malignant neoplasm of thyroid
CPT/HCPCS: 99283; 96375; 96365; 41800; J0295; J1885; J1170